=== PATIENT | female | born 1965 | race Caucasian/White ===

== ENCOUNTER 2017-01-22 23:26 | Emergency (ER) | payer MEDICAID ==
[2017-01-22 23:38] LABS: URINE APPEARANCE CLEAR; URINE BILIRUBIN NEGATIVE (NEGATIVE); URINE BLOOD LARGE (NEGATIVE); URINE COLOR YELLOW; URINE KETONE NEGATIVE (NEGATIVE); URINE LEUKOCYTE ESTERASE TRACE (NEGATIVE); URINE NITRITE NEGATIVE (NEGATIVE); URINE UROBILINOGEN 0.2 E.U./dL (0.20 - 1.00)
[2017-01-22 23:39] LABS: URINE GLUCOSE (UA) >=1000 mg/dL (NEGATIVE)
[2017-01-22 23:43] LABS: URINE BACTERIA NONE SEEN; URINE EPITHELIAL CELLS 0 - 2 (FEW); URINE RBC 36 - 50 (NONE SEEN); URINE WBC 0 - 2 (0-2/hpf)
--- NOTE | 2017-01-22 23:48 | Emergency Department Record ---
History of Present Illness - General Chief complaint: Flank Pain Stated complaint: FLANK PAIN Time Seen by Provider: 01/22/17 23:27 Source: Patient Mode of Arrival: Wheelchair Limitations: No limitations - History of Present Illness Initial comments: 51 yo female presents to ED with a CC of hematuria symptoms that began approximately 6 hours ago. Patient denies flank or back pain symptoms, but reports pain with urination. Patient denies fevers, chills, nausea, or vomiting symptoms. Patient does report that she takes Plavix for a previous CVA. MD Complaint: Dysuria, Other (hematuria) Onset/Timin -: Hour(s) Radiation: Non-radiating Severity: Mild Quality: Other Consistency: Intermittent Improves with: None Worsens with: Urination Patient : No Associated Symptoms: Denies other symptoms - Related Data Home Medications Medication Instructions Recorded Confirmed Last Taken Aspirin 325 mg PO DAILY 12/24/13 01/22/17 04/03/16 Atorvastatin Calcium 40 mg PO DAILY 12/24/13 01/22/17 04/03/16 Clopidogrel 75 mg PO DAILY 12/24/13 01/22/17 04/03/16 Fenofibrate 134 mg PO DAILY 12/24/13 01/22/17 04/03/16 Gabapentin 600 mg PO BID 12/24/13 01/22/17 04/03/16 Insulin Glargine,Hum.rec.anlog 50 unit SQ BID 12/24/13 01/22/17 Unknown [Lantus] Metoprolol Succinate [Toprol Xl] 25 mg PO DAILY 12/24/13 01/22/17 04/03/16 Novolog See Protocol SQ BID 12/24/13 01/22/17 Unknown Phenytoin Sodium Extended 200 mg PO BID 12/24/13 01/22/17 04/03/16 [Dilantin] Cholecalciferol (Vitamin D3) 2,000 unit PO BID 01/22/17 01/22/17 Unknown [Vitamin D3] Nitroglycerin [Nitrostat] 0.4 mg SL Q5MIN PRN 01/22/17 01/22/17 Unknown Venlafaxine HCl [Effexor Xr] 75 mg PO DAILY 01/22/17 01/22/17 Unknown Allergies Allergy/AdvReac Type Severity Reaction Status Date / Time Iodinated Contrast Media - Allergy HIVES Verified 01/22/17 23:43 Oral and Penicillins Allergy ANAPHYLAXIS Verified 04/03/16 17:11 Travel Screening - Travel/Exposure Within Last 30 Days Have you traveled within the last 30 days?: No - Travel/Exposure Within Last Year Have you traveled outside the [place] in the last year?: No - Additonal Travel Details Have you been exposed to anyone with a communicable illness?: No - Travel Symptoms Symptom Screening: None Review of Systems Constitutional: Denies: Chills, Fever, Malaise, Night sweats Eyes: Denies: Eye discharge, Eye pain ENT: Denies: Congestion, Ear pain, Epistaxis Respiratory: Denies: Cough, Dyspnea Cardiovascular: Denies: Chest pain, Dyspnea on exertion Endocrine: Denies: Fatigue, Heat or cold intolerance Gastrointestinal: Denies: Abdominal pain, Nausea, Vomiting Genitourinary: Reports: Dysuria, Hematuria. Denies: Frequency, Incontinence Musculoskeletal: Denies: Arthralgia, Back pain, Gout Skin: Denies: Bruising, Change in color Neurological: Denies: Abnormal gait, Confusion, Headache Psychiatric: Denies: Anxiety Hematological/Lymphatic: Denies: Anemia, Blood Clots Past Medical History - SOCIAL HISTORY Smoking Status: Former smoker Alcohol Use: None Drug Use: None - RESPIRATORY Hx Respiratory Disorders: No - CARDIOVASCULAR Hx Cardio Disorders: Yes Hx Cardiac Cath: Yes Hx Chest Pain: Yes Hx Heart Attack: Yes - NEURO Hx Neuro Disorders: Yes Hx CVA: Yes (09/15/2014) Hx Neuropathy: Yes Hx Seizures: Yes (epileptic) Comment:: rt sided weakness, whelchair dependent. some speech/memory loss - GI Hx GI Disorders: No - Hx Genitourinary Disorders: No - ENDOCRINE Hx Endocrine Disorders: Yes Hx Diabetes: Yes - MUSCULOSKELETAL Hx Musculoskeletal Disorders: No - PSYCH Hx Psych Problems: No - HEMATOLOGY/ONCOLOGY Hx Hematology/Oncology Disorders: No Family Medical History Any Significant Family History?: Yes Hx Cancer: Mother Hx Heart Disease: Father Hx Stroke: Mother Physical Exam - General General Appearance: Alert, Oriented x3, Cooperative, Mild distress Limitations: No limitations - Head Head exam: Atraumatic, Normocephalic, Normal inspection Head exam detail: negative: Abrasion, Contusion, Lyons's sign, General tenderness, Hematoma, Laceration - Eye Eye exam: Normal appearance. negative: Conjunctival injection, Periorbital swelling, Periorbital tenderness, Scleral icterus - ENT Ear exam: negative: Auricular hematoma, Auricular trauma Nasal Exam: negative: Active bleeding, Discharge, Dried blood, Sinus tenderness Mouth exam: negative: Drooling, Laceration, Tongue elevation - Neck Neck exam: Normal inspection. negative: Meningismus, Tenderness - Respiratory Respiratory exam: Normal lung sounds bilaterally. negative: Respiratory distress, Rhonchi, Stridor, Wheezes - Cardiovascular Cardiovascular Exam: Regular rate, Normal rhythm, Normal heart sounds - GI/Abdominal GI/Abdominal exam: Soft. negative: Rebound, Rigid, Tenderness - Rectal Rectal exam: Deferred - exam: Deferred - Extremities Extremities exam: Other (contractures to the RUE). negative: Calf tenderness, Pedal edema, Tenderness - Back Back exam: Denies: CVA tenderness (R), CVA tenderness (L) - Neurological Neurological exam: Alert, Normal gait, Oriented X3 - Psychiatric Psychiatric exam: Normal affect, Normal mood - Skin Skin exam: Normal color. negative: Abrasion Type of lesion: negative: abrasion Course Vital Signs 01/22/17 23:34 Temperature 98.8 F Pulse Rate 70 Respiratory 20 Rate Blood Pressure 124/73 Pulse Ox 96 - Reevaluation(s) Reevaluation #1: 01/23/17 00:10 Labs reviewed, Glucose 416, BUN 26, Creatinine 1.1. UA reveals large blood without evidence for infection. Labs are otherwise grossly unremarkable for an acute process. Reevaluation #2: 01/23/17 00:43 CT Abdomen and Pelvis: Diverticulosis, nothing acute. Patient and her SO were updated on all results, no evidence for UTI or infection are present. Patient appears stable for discharge with instructions for follow-up in 1-3 days as directed. Medical Decision Making - Lab Data Result diagrams: 01/22/17 23:46 01/22/17 23:46 Lab Results 01/22/17 Range/Units 23:39 Urine Color Yellow Urine Appearance Clear Urine pH 5.5 (5.0-8.0) Ur Specific [place] 1.010 (1.002-1.030) Urine Protein 30 mg/dl H (NEGATIVE) Urine Glucose (UA) >=1000 mg/dl H (NEGATIVE) Urine Ketones Negative (NEGATIVE) Urine Blood Large H (NEGATIVE) Urine Nitrite Negative (NEGATIVE) Urine Bilirubin Negative (NEGATIVE) Urine Urobilinogen 0.2 (0.20 - 1.00) E.U./dL Ur Leukocyte Esterase Trace H (NEGATIVE) Urine RBC 36 - 50 (NONE SEEN) Urine WBC 0 - 2 (0-2/hpf) Ur Epithelial Cells 0 - 2 (FEW) Urine Bacteria None seen Disposition Disposition: Discharge Clinical Impression: Hematuria Disposition: Home, Self-Care Condition: (2) Stable Instructions: Hematuria (ED) Additional Instructions: Return to ED if your symptoms worsen or if you have any concerns. Follow-up with your family doctor in 1-3 days as directed. Forms: Patient Portal Access Time of Disposition: 00:45
[2017-01-23 00:04] LABS: ALB/GLOB RATIO 1.2 (1.1-1.8); ALBUMIN 4.1 gm/dL (3.5-5.0); ANION GAP 6.7 (7-16); BILIRUBIN,TOTAL 0.36 mg/dL (0.2-1.3); CARBON DIOXIDE 27.3 mmol/L (22-30); CREATININE 1.1 mg/dL (0.52-1.04); TOTAL PROTEIN 7.5 gm/dL (6.3-8.2)
[2017-01-23 00:05] LABS: HEMATOCRIT 35.6 % (35.0-47.0); HEMOGLOBIN 12.2 gm/dl (11.6-16.0); MEAN CORPUSCULAR HEMOGLOBIN 29.8 pg (27-33); MEAN CORPUSCULAR HGB CONC 34.3 g/dl (32-36); MEAN PLATELET VOLUME 9.2 fl (7.4-10.4); PLATELET COUNT 285 K/uL (130-400); RED BLOOD COUNT 4.09 M/uL (3.80-5.40); RED CELL DISTRIBUTION WIDTH 13.4 % (11.5-14.5); WHITE BLOOD COUNT W/O DIFF 8.5 K/uL (4.2-12.2)
== END 2017-01-23 00:57 | disposition home or self-care (01) ==
LOC: ER 23:26
DX: R31.0 Gross hematuria (principal); R30.0 Dysuria; I69.351 Hemiplegia and hemiparesis following cerebral infarction affecting right dominant side; I69.311 Memory deficit following cerebral infarction; I69.328 Other speech and language deficits following cerebral infarction; I25.2 Old myocardial infarction; E11.9 Type 2 diabetes mellitus without complications; Z79.4 Long term (current) use of insulin; R10.9 Unspecified abdominal pain; Z87.891 Personal history of nicotine dependence
CPT/HCPCS: 74176; 80053; 81001; 85025; 85027; 99283; 99284

== ENCOUNTER 2017-03-15 19:47 | Emergency (ER) | payer MEDICAID ==
--- NOTE | 2017-03-15 20:10 | Emergency Department Record ---
History of Present Illness - General Chief Complaint: Headache Migraine Stated Complaint: AWOKE WITH A SEVERE HEADACHE Time Seen by Provider: 03/15/17 19:54 Source: Patient Mode of Arrival: Wheelchair Limitations: Other (previous stroke affects speech) - History of Present Illness Initial Comments: 51 yo female presents to ED for evaluation of a moderate-severe headache that began upon waking 3.5 hours prior to arrival. Patient reports previous symptoms 3.5 years ago that resulted in right sided hemiparesis. patient does report her headache sympotms have improved since arriving to the ED, rated at 5/ 10 currently, and the patient denies the need for analgesia at this time. Patient denies new weakness symptoms but does report a change in sensation to the right face. SO a the bedside denies new facial deficit on examination. Patient also reports a history of IDDM. MD Complaint: Headache Onset/Timin -: Hour(s) Onset Description: Sudden, At rest, Awoke with symptoms Location: Other Severity: Mild Severity scale (1-10): 5 Consistency: Constant Improves With: Nothing Worsens With: None Associated Symptoms: Other Treatments Prior to Arrival: None - Related Data Home Medications Medication Instructions Recorded Confirmed Last Taken Aspirin 325 mg PO DAILY 12/24/13 03/15/17 04/03/16 Atorvastatin Calcium 40 mg PO DAILY 12/24/13 03/15/17 04/03/16 Clopidogrel 75 mg PO DAILY 12/24/13 03/15/17 04/03/16 Fenofibrate 134 mg PO DAILY 12/24/13 03/15/17 04/03/16 Gabapentin 600 mg PO BID 12/24/13 03/15/17 04/03/16 Insulin Glargine,Hum.rec.anlog 50 unit SQ BID 12/24/13 03/15/17 Unknown [Lantus] Metoprolol Succinate [Toprol Xl] 25 mg PO DAILY 12/24/13 03/15/17 04/03/16 Novolog See Protocol SQ BID 12/24/13 03/15/17 Unknown Phenytoin Sodium Extended 200 mg PO BID 12/24/13 03/15/17 04/03/16 [Dilantin] Cholecalciferol (Vitamin D3) 2,000 unit PO BID 01/22/17 03/15/17 Unknown [Vitamin D3] Nitroglycerin [Nitrostat] 0.4 mg SL Q5MIN PRN 01/22/17 03/15/17 Unknown Venlafaxine HCl [Effexor Xr] 75 mg PO DAILY 01/22/17 03/15/17 Unknown Allergies Allergy/AdvReac Type Severity Reaction Status Date / Time Iodinated Contrast- Oral and Allergy HIVES Verified 01/22/17 23:43 IV Dye [Iodinated Contrast Media - Oral and] Penicillins Allergy ANAPHYLAXIS Verified 04/03/16 17:11 Travel Screening - Travel/Exposure Within Last 30 Days Have you traveled within the last 30 days?: No - Travel/Exposure Within Last Year Have you traveled outside the [place] in the last year?: No - Additonal Travel Details Have you been exposed to anyone with a communicable illness?: No - Travel Symptoms Symptom Screening: None Review of Systems Constitutional: Denies: Chills, Fever, Malaise, Night sweats Eyes: Denies: Eye discharge, Eye pain ENT: Denies: Congestion, Ear pain, Epistaxis Respiratory: Denies: Cough, Dyspnea Cardiovascular: Denies: Chest pain, Dyspnea on exertion Endocrine: Denies: Fatigue, Heat or cold intolerance Gastrointestinal: Denies: Abdominal pain, Nausea, Vomiting Genitourinary: Denies: Incontinence, Retention Musculoskeletal: Denies: Arthralgia, Back pain, Gout, Joint swelling Skin: Denies: Bruising, Change in color Neurological: Reports: Headache, Numbness. Denies: Abnormal gait, Confusion, Seizure Psychiatric: Denies: Anxiety Hematological/Lymphatic: Denies: Anemia, Blood Clots Past Medical History - SOCIAL HISTORY Smoking Status: Former smoker Alcohol Use: None Drug Use: None - RESPIRATORY Hx Respiratory Disorders: No - CARDIOVASCULAR Hx Cardio Disorders: Yes Hx Cardiac Cath: Yes Hx Chest Pain: Yes Hx Heart Attack: Yes - NEURO Hx Neuro Disorders: Yes Hx CVA: Yes (09/15/2014) Hx Neuropathy: Yes Hx Seizures: Yes (epileptic) Comment:: rt sided weakness, whelchair dependent. some speech/memory loss - GI Hx GI Disorders: No - Hx Genitourinary Disorders: No - ENDOCRINE Hx Endocrine Disorders: Yes Hx Diabetes: Yes - MUSCULOSKELETAL Hx Musculoskeletal Disorders: No - PSYCH Hx Psych Problems: No - HEMATOLOGY/ONCOLOGY Hx Hematology/Oncology Disorders: No Family Medical History Any Significant Family History?: No Hx Cancer: Mother Hx Heart Disease: Father Hx Stroke: Mother Physical Exam - General General Appearance: Alert, Oriented x3, Cooperative, Mild distress Limitations: No limitations - Head Head exam: Atraumatic, Normocephalic, Normal inspection Head exam detail: negative: Abrasion, Contusion, Lyons's sign, General tenderness, Hematoma, Laceration - Eye Eye exam: Normal appearance. negative: Conjunctival injection, Periorbital swelling, Periorbital tenderness, Scleral icterus - ENT Ear exam: negative: Auricular hematoma, Auricular trauma Nasal Exam: negative: Active bleeding, Discharge, Dried blood, Foreign body Mouth exam: negative: Drooling, Laceration, Muffled voice, Tongue elevation - Neck Neck exam: Normal inspection. negative: Meningismus, Tenderness - Respiratory Respiratory exam: Normal lung sounds bilaterally. negative: Rales, Respiratory distress, Rhonchi, Stridor - Cardiovascular Cardiovascular Exam: Regular rate, Normal rhythm, Normal heart sounds - GI/Abdominal GI/Abdominal exam: Soft. negative: Rebound, Rigid, Tenderness - Rectal Rectal exam: Deferred - exam: Deferred - Extremities Extremities exam: Other (contractures of the RUE/RLE on examination). negative : Calf tenderness, Pedal edema, Tenderness - Back Back exam: Denies: CVA tenderness (R), CVA tenderness (L) - Neurological Neurological exam: Alert, Oriented X3, Other (Mild facial deficit right, unchanged from her baseline per the patient's SO, paralysis of the RUE/RLE) - Psychiatric Psychiatric exam: Normal affect, Normal mood - Skin Skin exam: Normal color. negative: Abrasion Type of lesion: negative: abrasion Course Vital Signs 03/15/17 03/15/17 19:52 19:54 Temperature 97.9 F 97.9 F Pulse Rate 73 Pulse Rate [ 73 Pulse Ox Probe] Respiratory 20 24 Rate Blood Pressure 132/83 Blood Pressure 132/83 [Left Arm] Pulse Ox 97 98 - Reevaluation(s) Reevaluation #1: 03/15/17 20:10 Patient was seen and examined, due to [place] subjective sensory deficit to the right face, patient is not currently a tPA candidate. Will obtain laboratory studies and CT imaging for further evaluation. Labs reviewed, BUN 26/Creatinine 1.2. Glucose is 217. Labs are otherwise grossly unremarkable for an acute process. CT interpretation is pending currently. 03/15/17 20:34 Reevaluation #2: 07/22/17 20:49 CT Brain: Chronic ischemic changes, nothing acute. Reevaluation #3: 03/15/17 20:50 Case was discussed with Dr. Carreon, will transfer to [facility] for further neurologic evaluation. ASA ordered following CT imaging result. Patient and her SO were updated on all results and agree with the plan of care for transfer to [facility] for further evaluation. Medical Decision Making - Lab Data Result diagrams: 03/15/17 20:09 03/15/17 20:09 Disposition Disposition: Transfer Clinical Impression: TIA (transient ischemic attack) Qualifiers: Transient cerebral ischemia type: unspecified Qualified Code(s): G45.9 - Transient cerebral ischemic attack, unspecified Disposition: Acute Care Hospital Transfer Transfer To: [facility] Reason For Transfer: Neurology consultation/Stroke consultation Accepting Physician: Lauri Time Discussed w/Accepting Physician: 20:52 Condition: (2) Stable Forms: Patient Portal Access Time of Disposition: 20:52 Quality - Quality Measures Quality Measures: N/A - Blood Pressure Screening Blood Pressure Classification: Pre-Hypertensive BP Reading Systolic Measurement: 132 Diastolic Measurement: 83 Screening for High Blood Pressure: < Pre-Hypertensive BP, F/U Documented > [ G8950] Pre-Hypertensive Follow-up Interventions: Referral to alternative/primary care provider.
[2017-03-15 20:14] LABS: BASO % 0.9 % (0-6); EOS % 3.3 % (0-6); GRAN % 56.4 % (47-80); HEMATOCRIT 36.5 % (35.0-47.0); HEMOGLOBIN 12.2 gm/dl (11.6-16.0); LYMPH % 31.6 % (16-45); MEAN CELL VOLUME 87.7 fl (81-97); MEAN CORPUSCULAR HEMOGLOBIN 29.3 pg (27-33); MEAN CORPUSCULAR HGB CONC 33.4 g/dl (32-36); MEAN PLATELET VOLUME 9.3 fl (7.4-10.4); MONO % 7.8 % (0-9); PLATELET COUNT 283 K/uL (130-400); RED BLOOD COUNT 4.16 M/uL (3.80-5.40); RED CELL DISTRIBUTION WIDTH 14.3 % (11.5-14.5); WHITE BLOOD COUNT W/O DIFF 6.6 K/uL (4.2-12.2)
[2017-03-15 20:26] LABS: ALB/GLOB RATIO 1.2 (1.1-1.8); ALBUMIN 4.2 gm/dL (3.5-5.0); ANION GAP 13.2 (7-16); BILIRUBIN,TOTAL 0.66 mg/dL (0.2-1.3); CARBON DIOXIDE 27.8 mmol/L (22-30); CREATININE 1.2 mg/dL (0.52-1.04); INR 0.99; PROTHROMBIN TIME (PATIENT) 10.7 SECONDS (9.5-12.1); TOTAL PROTEIN 7.7 gm/dL (6.3-8.2)
[2017-03-15] MEDS ORDERED: ASPIRIN 81 MG CHEWABLE TABLET PO ONE (20:51)
[2017-03-15] MEDS ORDERED: ONDANSETRON HCL IV 4 MG/2 ML VIAL IVP ONE (23:21)
[2017-03-15] MEDS ORDERED: MORPHINE SULFATE 5 MG/ML PFS IVP ONE (23:21)
--- NOTE | 2017-03-18 08:22 | CT SCAN REPORT ---
EXAM: CT SCAN OF THE HEAD HISTORY: PATIENT HAS SPEECH AND MEMORY LOSS. TECHNIQUE: Serial axial CT scan of the head was performed at 2.5 mm intervals from the base of the skull to the apex without the use of intravenous contrast. Comparison: CT scan of the head dated 01/27/08 is provided. FINDINGS: A large area of encephalomalacia is noted within the left posterior frontal and left temporal lobes. This finding is due with respect to the prior examination and is consistent with an old infarct. There is no mass or mass effect. An area of decreased attenuation within the left parietal cortex suggests old infarct in this area as well. The remainder of the garcia and white differentiation appear within normal limits. There is no CT evidence of intra or extraaxial fluid collection to suggest bleeding. Bone windows demonstrate no CT evidence of a fracture or dislocation of the skull. The paranasal sinuses are unremarkable. IMPRESSION: CHRONIC INFARCT INVOLVING THE LEFT POSTERIOR FRONTAL LOBE AND LEFT PARIETAL LOBE. NO CT EVIDENCE OF AN ACUTE INTRACRANIAL PROCESS. JOB NUMBER: [id number] MTDD
== END 2017-03-15 23:33 | disposition short-term general hospital (02) ==
LOC: ER 19:47
DX: G45.9 Transient cerebral ischemic attack, unspecified (principal); R51 Headache; I69.811 Memory deficit following other cerebrovascular disease; I69.828 Other speech and language deficits following other cerebrovascular disease; I69.851 Hemiplegia and hemiparesis following other cerebrovascular disease affecting right dominant side; E11.9 Type 2 diabetes mellitus without complications; I25.2 Old myocardial infarction; Z87.891 Personal history of nicotine dependence; Z79.4 Long term (current) use of insulin; G40.909 Epilepsy, unspecified, not intractable, without status epilepticus
CPT/HCPCS: 99285 ×2; 96374; 96375; 85025; 85610; 80053; 70450; 93005; 93010; J2405; J2270

== ENCOUNTER 2017-04-10 19:51 | Emergency (ER) | payer MEDICAID ==
--- NOTE | 2017-04-10 21:23 | Emergency Department Record ---
History of Present Illness - General Stated complaint: RT PINKY TOE INFECTED Time Seen by Provider: 04/10/17 21:22 Source: Patient Mode of Arrival: Ambulatory Limitations: No limitations - History of Present Illness Initial comments: 51 yo female presents with a right 5th toe concern. The noted blood, nail injury, swelling today. She and he are unaware of an injury. She wheelchair bound due to a prior stroke. She is a diabetic as well. No pus seen or red streaking. MD Complaint: Extremity pain, Joint pain -: Days(s) (1) Location: Right, Foot Radiation: Distal Quality: Aching Consistency: Constant Improves with: Nothing Worsens with: Nothing Associated Symptoms: Denies other symptoms - Related Data Home Medications Medication Instructions Recorded Confirmed Last Taken Aspirin 325 mg PO DAILY 12/24/13 04/10/17 04/03/16 Insulin Glargine,Hum.rec.anlog 50 unit SQ BID 12/24/13 04/10/17 Unknown [Lantus] Metoprolol Succinate [Toprol Xl] 25 mg PO QPM 12/24/13 04/10/17 04/03/16 Novolog See Protocol SQ BID 12/24/13 04/10/17 Unknown Phenytoin Sodium Extended 200 mg PO BID 12/24/13 04/10/17 04/03/16 [Dilantin] Cholecalciferol (Vitamin D3) 2,000 unit PO BID 01/22/17 04/10/17 Unknown [Vitamin D3] Nitroglycerin [Nitrostat] 0.4 mg SL Q5MIN PRN 01/22/17 04/10/17 Unknown Venlafaxine HCl [Effexor Xr] 75 mg PO DAILY 01/22/17 04/10/17 Unknown Atorvastatin Calcium 40 mg PO QHS 04/10/17 04/10/17 Unknown Clopidogrel Bisulfate [Clopidogrel] 75 mg PO DAILY 04/10/17 04/10/17 Unknown Fenofibrate,Micronized 134 mg PO DAILY 04/10/17 04/10/17 Unknown [Fenofibrate] Gabapentin [Neurontin] 600 mg PO BID 04/10/17 04/10/17 Unknown Previous Rx's Medication Instructions Recorded Clindamycin HCl 300 mg PO QID #28 capsule 04/10/17 Allergies Allergy/AdvReac Type Severity Reaction Status Date / Time Iodinated Contrast- Oral and Allergy HIVES Verified 05/31/17 23:43 IV Dye [Iodinated Contrast Media - Oral and] Penicillins Allergy ANAPHYLAXIS Verified 04/03/16 17:11 Review of Systems Constitutional: Denies: Chills, Fever, Malaise Eyes: Denies: Eye discharge, Eye pain ENT: Denies: Congestion, Throat pain Respiratory: Denies: Dyspnea Cardiovascular: Denies: Chest pain, Syncope Endocrine: Denies: Fatigue Gastrointestinal: Denies: Abdominal pain, Diarrhea, Nausea, Vomiting Genitourinary: Denies: Dysuria, Urgency Musculoskeletal: Reports: As per HPI, Arthralgia Skin: Reports: As per HPI, Change in color Neurological: Denies: Headache Psychiatric: Denies: Anxiety Hematological/Lymphatic: Denies: Easy bleeding, Easy bruising, Swollen glands Past Medical History - SOCIAL HISTORY Smoking Status: Former smoker Drug Use: None - RESPIRATORY Hx Respiratory Disorders: No - CARDIOVASCULAR Hx Cardio Disorders: Yes Hx Cardiac Cath: Yes Hx Chest Pain: Yes Hx Heart Attack: Yes - NEURO Hx Neuro Disorders: Yes Hx CVA: Yes (09/15/2014) Hx Neuropathy: Yes Hx Seizures: Yes (epileptic) Comment:: rt sided weakness, whelchair dependent. some speech/memory loss - GI Hx GI Disorders: No - Hx Genitourinary Disorders: No - ENDOCRINE Hx Endocrine Disorders: Yes Hx Diabetes: Yes - MUSCULOSKELETAL Hx Musculoskeletal Disorders: No - PSYCH Hx Psych Problems: No - HEMATOLOGY/ONCOLOGY Hx Hematology/Oncology Disorders: No Family Medical History Hx Cancer: Mother Hx Heart Disease: Father Hx Stroke: Mother Physical Exam - General General Appearance: Alert Limitations: No limitations - Head Head exam: Atraumatic, Normal inspection - Eye Eye exam: Normal appearance - ENT ENT exam: Normal exam Ear exam: Normal external inspection Nasal Exam: Normal inspection Mouth exam: Normal external inspection - Neck Neck exam: Normal inspection - Respiratory Respiratory exam: Normal lung sounds bilaterally. negative: Respiratory distress - Cardiovascular Cardiovascular Exam: Regular rate, Normal rhythm, Normal heart sounds Peripheral Pulses: 2+: Dorsalis Pedis (R) - Rectal Rectal exam: Deferred - exam: Deferred - Extremities Extremities exam: Normal capillary refill, Pedal edema. negative: Normal inspection Image of Feet: 1 - mild swellling right 5th toe, small amount of dry blood, no pus, nail mildly loose, no deformity of the toe - Neurological Neurological exam: Alert, Oriented X3. negative: Altered - Psychiatric Psychiatric exam: Normal affect, Normal mood - Skin Skin exam: Erythema Course - Reevaluation(s) Reevaluation #1: 04/10/17 21:37 XR of the toe ordered. Reevaluation #2: XR demonstrated a non displaced fracture of the proximal phalange bone The nail was re-examined. It is essential near completely avulsed I discussed the options. She and her want it removed and not replaced I discussed likely [facility] irregular growth is likely. 04/10/17 22:47 Betadine prep Lidocaine without epi 3.5ml The nail was gently removed with scissors from the small remaining attachment The area was thoroughly cleaned Dressing applied Rx for Clindamycin provided given she is a diabetic Given her stroke, chronic sensory changes, chronic fungal nail infections, diabetes I recommended the patient discuss a podiatry referral with her PCP 04/11/17 00:12 Disposition Disposition: Discharge Clinical Impression: Toe fracture, right Qualifiers: Encounter type: initial encounter Toe: lesser toe Fracture type: closed Phalanx : proximal Fracture alignment: nondisplaced Qualified Code(s): S92.514A - Nondisplaced fracture of proximal phalanx of right lesser toe(s), initial encounter for closed fracture Nail avulsion of toe Qualifiers: Encounter type: initial encounter Qualified Code(s): S91.209A - Unspecified open wound of unspecified toe(s) with damage to nail, initial encounter Disposition: Home, Self-Care Condition: (1) Good Instructions: Toe Fracture (ED) Additional Instructions: Change the dressing daily Call your doctor for a podiatry referral Return if bleeding, red, pus, warm or signs of infection Prescriptions: Clindamycin HCl 300 mg PO QID #28 capsule Forms: Patient Portal Access Time of Disposition: 23:45 Quality - Quality Measures Quality Measures: N/A - Blood Pressure Screening Does Patient Have Any of the Following: No Blood Pressure Classification: Pre-Hypertensive BP Reading Systolic Measurement: 131 Diastolic Measurement: 79 Screening for High Blood Pressure: < Pre-Hypertensive BP, F/U Documented > [ G8950] Pre-Hypertensive Follow-up Interventions: Referral to alternative/primary care provider.
[2017-04-10] MEDS ORDERED: CLINDAMYCIN 150 MG CAP PO ONE (21:37)
[2017-04-11] MEDS ORDERED: TOPICAL LIDOCAINE W/ EPI 5 ML TOP ONE (00:05)
[2017-04-11] MEDS ORDERED: GELATIN SPONGE,ABSORBABLE 1 EACH SPONGE TP ONE (00:12)
--- NOTE | 2017-04-12 23:02 | RADIOLOGY REPORT ---
EXAM: TOES, RIGHT HISTORY: INJURY. TECHNIQUE: Three views of the right fifth toe. COMPARISON: None. ENCOUNTER: Initial. FINDINGS: Nondisplaced fracture of the distal aspect of the proximal phalanx of the fifth toe with associated soft tissue swelling. No dislocation. Osteopenia. IMPRESSION: NONDISPLACED FRACTURE OF THE DISTAL ASPECT OF THE PROXIMAL PHALANX OF THE FIFTH TOE. JOB NUMBER: [id number] MTDD
== END 2017-04-11 00:02 | disposition home or self-care (01) ==
LOC: ER 19:51
DX: S92.514A Nondisplaced fracture of proximal phalanx of right lesser toe(s), initial encounter for closed fracture (principal); S91.209A Unspecified open wound of unspecified toe(s) with damage to nail, initial encounter; E11.9 Type 2 diabetes mellitus without complications; Z79.4 Long term (current) use of insulin; X58.XXXA Exposure to other specified factors, initial encounter
CPT/HCPCS: 73660; 99283; 99284

== ENCOUNTER 2017-09-30 00:12 | Observation (INO) | payer MEDICAID ==
[2017-09-30] MEDS ORDERED: MORPHINE SULFATE 5 MG/ML PFS IVP ONE (00:24)
[2017-09-30] MEDS ORDERED: METHYLPREDNISOLONE PF 125MG/VIAL IVP ONE (00:24)
[2017-09-30] MEDS ORDERED: ONDANSETRON HCL IV 4 MG/2 ML VIAL IVP ONE (00:24)
[2017-09-30] MEDS ORDERED: DIPHENHYDRAMINE HCL IV 50 MG/ML VIAL IVP ONE (00:24)
--- NOTE | 2017-09-30 00:30 | Emergency Department Record ---
History of Present Illness - General Chief complaint: Pain Stated complaint: RIGHT SIDE PAIN Time Seen by Provider: 09/30/17 00:14 Source: Patient Mode of Arrival: Wheelchair Limitations: No limitations - History of Present Illness Initial comments: 52 yo female presents to ED with a CC of right sided rib/abdominal pain symptoms for the past 1 week. Patient reports recent cough symptoms, denies fevers, chills, flank pain, or urinary symptoms. Patient denies nausea and vomiting symptoms. Patient does report history of cardiac and lower extremity stents, h/o CVA. MD Complaint: Abdominal Pain Onset/Timin -: Week(s) Location: Right History of Same: No Radiation: None Quality: Sharp, Stabbing Consistency: Constant Improves with: Nothing Worsens with: Palpation Associated Symptoms: Denies other symptoms - Related Data Home Medications Medication Instructions Recorded Confirmed Last Taken Levofloxacin [Levaquin] 750 mg PO DAILY 09/30/17 09/30/17 Unknown Allergies Allergy/AdvReac Type Severity Reaction Status Date / Time Iodinated Contrast- Oral and Allergy HIVES Verified 09/30/17 00:15 IV Dye [Iodinated Contrast Media - Oral and] Penicillins Allergy ANAPHYLAXIS Verified 09/30/17 00:15 Review of Systems Constitutional: Denies: Chills, Fever, Malaise, Night sweats Eyes: Denies: Eye discharge, Eye pain ENT: Denies: Congestion, Ear pain, Epistaxis Respiratory: Denies: Cough, Dyspnea Cardiovascular: Reports: Chest pain. Denies: Dyspnea on exertion Endocrine: Denies: Fatigue, Heat or cold intolerance Gastrointestinal: Reports: Abdominal pain. Denies: Nausea, Vomiting Genitourinary: Denies: Incontinence, Retention Musculoskeletal: Denies: Arthralgia, Back pain, Gout, Joint swelling Skin: Denies: Bruising, Change in color Neurological: Denies: Abnormal gait, Confusion, Headache, Seizure Psychiatric: Denies: Anxiety Hematological/Lymphatic: Denies: Anemia, Blood Clots Past Medical History - SOCIAL HISTORY Smoking Status: Former smoker Drug Use: None - RESPIRATORY Hx Respiratory Disorders: No - CARDIOVASCULAR Hx Cardio Disorders: Yes Hx Cardiac Cath: Yes Hx Chest Pain: Yes Hx Heart Attack: Yes - NEURO Hx Neuro Disorders: Yes Hx CVA: Yes (09/15/2014) Hx Neuropathy: Yes Hx Seizures: Yes (epileptic) Comment:: rt sided weakness, whelchair dependent. some speech/memory loss - GI Hx GI Disorders: No - Hx Genitourinary Disorders: No - ENDOCRINE Hx Endocrine Disorders: Yes Hx Diabetes: Yes - MUSCULOSKELETAL Hx Musculoskeletal Disorders: No - PSYCH Hx Psych Problems: No - HEMATOLOGY/ONCOLOGY Hx Hematology/Oncology Disorders: No Family Medical History Hx Cancer: Mother Hx Heart Disease: Father Hx Stroke: Mother Physical Exam - General General Appearance: Alert, Oriented x3, Cooperative, Moderate distress Limitations: No limitations - Head Head exam: Atraumatic, Normocephalic, Normal inspection Head exam detail: negative: Abrasion, Contusion, Lyons's sign, General tenderness, Hematoma, Laceration - Eye Eye exam: Normal appearance. negative: Conjunctival injection, Periorbital swelling, Periorbital tenderness, Scleral icterus - ENT Ear exam: negative: Auricular hematoma, Auricular trauma Nasal Exam: negative: Active bleeding, Discharge, Dried blood, Foreign body Mouth exam: negative: Drooling, Laceration, Muffled voice, Tongue elevation - Neck Neck exam: Normal inspection. negative: Meningismus, Tenderness - Respiratory Respiratory exam: Normal lung sounds bilaterally, Chest wall tenderness (right lateral chest wall). negative: Rales, Respiratory distress, Rhonchi, Stridor - Cardiovascular Cardiovascular Exam: Regular rate, Normal rhythm, Normal heart sounds - GI/Abdominal GI/Abdominal exam: Soft, Tenderness, Other (TTP RUQ, epigastric region as well right lateral chest wall). negative: Rebound, Rigid - Rectal Rectal exam: Deferred - exam: Deferred - Extremities Extremities exam: Normal inspection. negative: Pedal edema, Tenderness - Back Back exam: Denies: CVA tenderness (R), CVA tenderness (L) - Neurological Neurological exam: Alert, Normal gait, Oriented X3 - Psychiatric Psychiatric exam: Normal affect, Normal mood - Skin Skin exam: Normal color. negative: Abrasion Type of lesion: negative: abrasion Course - Reevaluation(s) Reevaluation #1: 09/30/17 01:10 Labs reviewed, D-Dimer 0.43, Potassium 4.7. BUN/Creatinine 29/1.3, Glucose 287. Patient is resting more comfortably following Morphine-CT Chest/Abdomen ordered for further evaluation. Reevaluation #2: 09/30/17 02:20 CT Chest: No acute process CT Abdomen: No acute process Reevaluation #3: 09/30/17 02:49 Patient and her SO were updated on all results, will place in observation for pain control and PT/OT evaluation before being released home. Patient and her SO agree with the plan as discussed. Reevaluation #4: 09/30/17 06:53 Case was discussed with Amelia Clarke, will accept admission at this time. Medical Decision Making - Lab Data Result diagrams: 09/30/17 00:43 09/30/17 00:43 Disposition Disposition: Admit Clinical Impression: Chest wall pain Disposition: Still a Patient at [facility] Decision to Admit: Admit from ER Decision to Admit Date: 09/30/17 Decision to Admit Time: 02:51 Condition: (2) Stable Time of Disposition: 02:51 Quality - Quality Measures Quality Measures: N/A - Blood Pressure Screening Does Patient Have Any of the Following: Active Dx of HTN Blood Pressure Classification: Hypertensive Reading Systolic Measurement: 161 Diastolic Measurement: 71 Screening for High Blood Pressure: Patient Exclusion, Hx of HTN [G9744]
[2017-09-30 00:49] LABS: BASO % 0.5 % (0-6); EOS % 3.7 % (0-6); GRAN % 52.9 % (47-80); HEMATOCRIT 33.9 % (35.0-47.0); HEMOGLOBIN 11.7 gm/dl (11.6-16.0); LYMPH % 34.7 % (16-45); MEAN CELL VOLUME 84.1 fl (81-97); MEAN CORPUSCULAR HGB CONC 34.5 g/dl (32-36); MEAN PLATELET VOLUME 9.3 fl (7.4-10.4); MONO % 8.2 % (0-9); PLATELET COUNT 262 K/uL (130-400); RED BLOOD COUNT 4.03 M/uL (3.80-5.40); RED CELL DISTRIBUTION WIDTH 14.1 % (11.5-14.5); WHITE BLOOD COUNT W/O DIFF 5.7 K/uL (4.2-12.2)
[2017-09-30 01:05] LABS: ALBUMIN 4.2 g/dL (4.0-5.0)
[2017-09-30 01:06] LABS: ALB/GLOB RATIO 1.4 (1.1-1.8); BILIRUBIN,TOTAL 0.2 mg/dL (0.2-1.0); CREATININE 1.3 mg/dL (0.5-0.9); TOTAL PROTEIN 7.3 g/dL (6.6-8.7)
[2017-09-30 02:34] LABS: URINE APPEARANCE CLEAR; URINE BILIRUBIN NEGATIVE (NEGATIVE); URINE BLOOD NEGATIVE (NEGATIVE); URINE COLOR YELLOW; URINE KETONE NEGATIVE (NEGATIVE); URINE LEUKOCYTE ESTERASE NEGATIVE (NEGATIVE); URINE NITRITE NEGATIVE (NEGATIVE); URINE UROBILINOGEN 0.2 E.U./dL (0.20 - 1.00)
[2017-09-30 02:35] LABS: URINE GLUCOSE (UA) >=1000 mg/dL (NEGATIVE)
[2017-09-30 02:36] LABS: HCG,QUALITATIVE URINE NEGATIVE (NEGATIVE)
[2017-09-30] MEDS ORDERED: LIDOCAINE 5% PATCH TOP ONE (02:51)
[2017-09-30] MEDS: HYDROCODONE/APAP 5/325MG TABLET PO PRN ×2 (07:48→13:02)
[2017-09-30] MEDS: ASPIRIN 325 MG TABLET PO SCH (09:57)
[2017-09-30] MEDS: PHENYTOIN SODIUM EXTENDED 100 MG CAPSULE PO SCH ×2 (09:58→21:41)
[2017-09-30] MEDS: VENLAFAXINE ER 75 MG CAPSULE PO SCH (09:59)
[2017-09-30] MEDS: GABAPENTIN 300 MG CAPSULE PO SCH ×2 (09:59→21:41)
[2017-09-30] MEDS: CLOPIDOGREL 75MG TABLET PO SCH (10:00)
[2017-09-30] MEDS ORDERED: LEVOFLOXACIN 500 MG TABLET PO SCH (10:00)
[2017-09-30] MEDS: LEVEMIR FLEXTOUCH 100 UNIT/ML INSULIN PEN SQ SCH ×2 (10:02→21:50)
--- NOTE | 2017-09-30 10:03 | Rehab Evaluation ---
Patient Information - Patient Information Diagnosis: R Sided Rib/Abdominal Pain Ordered Treatment: PT Evaluate and Treat Status: Initial Evaluation Surgery: No Past Medical/Surgical Hx: PAST MEDICAL/SURGICAL HISTORY Past Surgical History Hip fracture hysterectomy cardiac stents x 2 BACK SURGERY CHOLECYSTECTOMY stents in legs PMH - Respiratory Hx Respiratory Disorders No PMH - Cardiovascular Hx Cardiovascular Disorders Yes Hx Cardiac Catheterization Yes Hx Chest Pain Yes Hx Heart Attack Yes PMH - Neuro Hx Neurological Disorders Yes Hx Cerebrovascular Accident Yes: 09/15/2014 Hx Neuropathy Yes Hx Seizures Yes: epileptic Comment: rt sided weakness, whelchair dependent. some speech/memory loss PMH - GI Hx Gastrointestinal Disorders No PMH - Hx Genitourinary Disorders No PMH - Endocrine Hx Endocrine Disorders Yes Hx Diabetes Yes PMH - Musculoskeletal Hx Musculoskeletal Disorders No PMH - Psych Hx Psychiatric Problems No PMH - Hematology/Oncology Hx Hematology/Oncology No Disorders Social History: Detail (The patient lives in a single story home with her daughter and her . The home has a ramp to enter, and no steps in the home. Her bathroom has a walk-in shower with a transfer bench, and she uses an elevated toilet seat. She does not have grab bars in the shower, but does around the toilet area. She says that she uses a wheelchair for mobility in the community, but uses a kelly-walker for ambulating in the home. She says that her daughter is around during the day for ADLs and her helps at night.) - Time With Patient Total Time Spent With Patient (Min): 40 Treatment Procedures: Detail (PT Initial Evaluation) Subjective Information - Subjective Information Per Patient (The patient said she had a stroke 3 years ago, and received home therapy after she returned home. About a year ago, she was standing near her closet, and had a fall where she broke her hip. She had to undergo ORIF for the hip, and returned home. Present complaint is of right sided abdominal pain that has been bothering her in spells since Friday.) Objective Data - Pain Pain Present: Yes Pain Intensity: 7 Pain Scale Used: Numeric (1 - 10) - Mental Status Patient Orientation: Oriented x3 (The patient suffers from expressive aphasia, so she has difficulty verbalizing understanding of instructions. The patient is able to respond to all questions, but increased time is required for responses to be made.) - ROM Not within normal limits (L LE hip/ankle/knee - not formally measured, but was within normal limits overall R LE - Not formally measured - Lacked DF to neutral and had moderate DF limitations. Knee flexion/extension was WFL. Hip flexion was able to reach 90 degrees.) - Strength/Tone Not within normal limits (L LE hip/knee/ankle was 5/5 throughout R LE - The patient had no active movement in bed, but was able to functionally advance the LE during ambulation Tone L LE - None Present R LE - Ankle moving into dorsiflexion 3/4 on Steffany Scale, Knee moving into flexion 2/4 on Steffany Scale, Hip moving into flexion 2/4 Steffany Scale) - Bed Mobility Independent (Supine to sit - independent with use of bed railing and head of bed elevated, but had increased pain with the movement.) - Transfers Needs Assist (The patient required hand hold assist to transfer from sit to stand. Was independent with stand to sit.) - Balance Balance Sitting: Good Balance Standing: Fair (Required use of kelly-walker and AFO on the right) - Sensation Deficit (L LE - showed no sensation deficits R LE - Had diminished sensation throughout the LE) - Gait Detail (The patient required the use of a kelly-walker on the left side and R AFO. The patient placed the kelly-walker out in front, rather than out to the side. She was able to ambulate from her room to the elevator (about 45 feet) on the [facility] floor with CGA x 2. The patient,s gait pattern was characterized by decreased stride length bilaterally, decreased weight bearing R LE, R genu recurvatum during R stance phase, R LE drag through/ hip circumduction suring R swing phase, toeing out throughout gait.) Therapy Assessment - Therapy Assessment Detail (The patient's increased right-sided abdominal pain is limiting the patient's rehab potential currently. Once the patient's source of pain is established and decreased, a better judgement on the patient's potential can be made. The patient could benefit from inpatient rehab to improve ambulation skills and transfer skills.) Problem List - Problem List Physical Therapy Problem List: Detail (1) Safety concerns with ambulation 2) Increased fall risk due to R sided weakness 3) Difficulty with transfers due to R Sided weakness 4) Increased pain of right abdominal area with unknown cause 5 ) Difficulty with communication due to expressive aphasia) Goals - Goals Physical Therapy Goals: 1) The patient will be able to transfer from sit to stand with supervision for safety. 2) The patient will require supervision only with ambulation for household distances. 3) Assess the patient's current HEP for tone management of LEs and UEs, and progress the HEP as needed for the patient. Prognosis - Prognosis Moderate Plan - Plan Physical Therapy Plan: Patient will be seen 1-2x/day M-F for gait training and transfer training for increased independence when the patient returns home. The patient may benefit from a short inpatient stay to address problems listed and increase independence at home.
--- NOTE | 2017-09-30 10:23 | Rehab Evaluation ---
Patient Information - Patient Information Diagnosis: chest wall pain Ordered Treatment: OT Evaluate and Treat Status: Initial Evaluation Surgery: No Past Medical/Surgical Hx: PAST MEDICAL/SURGICAL HISTORY Past Surgical History Hip fracture hysterectomy cardiac stents x 2 BACK SURGERY CHOLECYSTECTOMY stents in legs PMH - Respiratory Hx Respiratory Disorders No PMH - Cardiovascular Hx Cardiovascular Disorders Yes Hx Cardiac Catheterization Yes Hx Chest Pain Yes Hx Heart Attack Yes PMH - Neuro Hx Neurological Disorders Yes Hx Cerebrovascular Accident Yes: 09/15/2014 Hx Neuropathy Yes Hx Seizures Yes: epileptic Comment: rt sided weakness, whelchair dependent. some speech/memory loss PMH - GI Hx Gastrointestinal Disorders No PMH - Hx Genitourinary Disorders No PMH - Endocrine Hx Endocrine Disorders Yes Hx Diabetes Yes PMH - Musculoskeletal Hx Musculoskeletal Disorders No PMH - Psych Hx Psychiatric Problems No PMH - Hematology/Oncology Hx Hematology/Oncology No Disorders Social History: Detail (The patient lives in a single story home with her daughter and her . The home has a ramp to enter, and no steps in the home. Her bathroom has a walk-in shower with a transfer bench, and she uses an elevated toilet seat. She does not have grab bars in the shower, but does around the toilet area. She says that she uses a wheelchair for mobility in the community, but uses a kelly-walker for ambulating in the home. She says that her daughter is around during the day for ADLs and her helps at night. She required assistance for self care activities and she was not responsible for home mgmt, meal prep or laundry tasks.) Precautions: [place], Fall, Other (decreased expressive communication) - Time With Patient Total Time Spent With Patient (Min): 40 Treatment Procedures: Detail (OT eval low complexity) Subjective Information - Subjective Information Per Patient Objective Data - Pain Pain Present: Yes (03/03 right sided rib/abdominal pain) - Mental Status Patient Orientation: Oriented x3 (Pt oriented and able to follow all instructions. She displays expressive aphasia but is able to communicate using left hand as needed.) - Visual Perception Appears within normal limits for therapeutic activities (Pt wears glasses at all times.) - ROM Not within normal limits (Left UE AROM WNL, Right UE PROM limited throughout due to significant tone. Right shoulder limited to approx. 90 degrees flexion passively and she reported increased rib/side pain with passive motion of shoulder.) - Strength/Tone Not within normal limits (Left UE MMT 4+/5, Right UE not tested due to significant tone. She has no active movement of right UE. Moderate tone noted throughout right UE.) - Coordination Deficit (Left UE coordination WNL, Right UE impaired (no active motion of right UE).) - Bed Mobility Independent (Supine to sit Indly using hospital bed railing.) - Transfers Needs Assist (Pt required hand held assist for sit to stand from EOB.) - Balance Balance Sitting: Good Balance Standing: Fair - Sensation Deficit (Pt reports some altered sensation in right UE although intact to light touch.) - Gait Detail (Pt amb short distance in hallway with kelly walker and CG assist.) - ADL's/IADL's Detail (Pt requires max assist to don shoes. Nursing assisting with self cares at this time.) Therapy Assessment - Therapy Assessment Detail (Pt presents with pain which is impairing her level of functioning with mobility and ADLs.) Problem List - Problem List Occupational Therapy Problem List: Detail (1. Decreased Ind with functional mobility needed for safe and Ind return home. 2. Decreased Ind with self care activities. 3. Significant tone throughout right UE 4. Impaired expressive communication) Goals - Goals Occupational Therapy Goals: 1. Pt will be safe and Ind with transfers and functional mobility needed for ADLs. 2. Pt will be Ind with UE dressing 3. Pt will participate in activities to improve tone in right UE to allow increased Ind with ADLs. Prognosis - Prognosis Good Plan - Plan Occupational Therapy Plan: OT 2-4 days per week to address self care, functional mobility and UE function to allow safe return home. Pt may benefit from short IP rehab stay to maximize safety and Ind.
[2017-09-30] MEDS ORDERED: NOVOLOG FLEXPEN (INSULIN ASPART) 100 UNITS/ML SQ SCH (11:45)
[2017-09-30] MEDS: ACYCLOVIR 200 MG CAPSULE PO SCH ×3 (15:57→21:40)
[2017-09-30] MEDS ORDERED: TRAMADOL HCL 50 MG TABLET PO PRN (16:24)
[2017-09-30] MEDS: NOVOLOG FLEXPEN (INSULIN ASPART) 100 UNITS/ML SQ SCH (17:24)
[2017-09-30] MEDS ORDERED: METOPROLOL SUCC 25 MG TAB.ER PO SCH (22:00)
[2017-09-30] MEDS ORDERED: ATORVASTATIN 20 MG TABLET PO SCH (22:00)
[2017-10-01] MEDS: ACYCLOVIR 200 MG CAPSULE PO SCH ×2 (06:12→10:28)
[2017-10-01] MEDS: NOVOLOG FLEXPEN (INSULIN ASPART) 100 UNITS/ML SQ SCH (08:03)
--- NOTE | 2017-10-01 08:48 | CT SCAN REPORT ---
DATE: 09/30/2017 at 1:35 a.m. EXAM: CHEST CT WITHOUT CONTRAST. HISTORY: Right-sided chest pain and right upper quadrant and flank pain, worse tonight. TECHNIQUE: Axial CT scan of the chest performed without intravenous contrast at the referring physician's request. Preliminary report provided by [facility]. COMPARISON: No prior chest CT with which to compare. Comparison is made with a prior two-view chest x-ray dated 12/24/2013. FINDINGS: No acute infiltrate identified. There is a tiny pleural-based nodule in the right upper lung laterally only about 2.4 mm in size. If the patient is at high risk for malignancy, follow-up chest CT in a year's time would be suggested. Otherwise, no additional followup is necessary. Heterogeneous appearance of the visualized thyroid probably represents some very tiny nodules bilaterally. Correlation with physical examination is suggested and follow-up thyroid ultrasound may be useful. Dense, calcific-like density involving a portion of the left coronary artery may represent a stent. No pleural or pericardial effusion evident. Normal- sized mediastinal nodes are seen with no definite hilar or mediastinal adenopathy evident. Mild spurring in the spine. IMPRESSION: 1. THERE IS PROBABLY A CORONARY ARTERY STENT IN PLACE. 2. A TINY NODULE IN THE RIGHT UPPER LUNG LATERALLY DESCRIBED ABOVE. 3. NO ACUTE INFILTRATE SEEN. 4. MINOR SPURRING IN THE SPINE. 5. HETEROGENOUS APPEARANCE OF THE THYROID MAY REPRESENT SOME TINY THYROID NODULES. JOB NUMBER: [id number] [facility]
--- NOTE | 2017-10-01 09:08 | CT SCAN REPORT ---
DATE: 09/30/2017 at 1:38 a.m. EXAM: EMERGENCY CT SCAN OF THE ABDOMEN WITHOUT CONTRAST. HISTORY: Right-sided flank pain and right upper quadrant pain for a week, greatly increased tonight. TECHNIQUE: Axial CT scan of the abdomen performed without oral or intravenous contrast. Preliminary report provided by [facility]. COMPARISON: CT of the abdomen and pelvis dated 01/23/2017. SURGICAL HISTORY: Cholecystectomy, hysterectomy, heart stents. FINDINGS: The gallbladder is not identified consistent with the surgical history. No intrarenal calculi identified on either side. No hydronephrosis or hydroureter is seen with no ureteral calculus evident on either side and no bladder calculus evident. Postoperative changes in the right hip with an intramedullary mervat and compression screw in place. This was present previously as well. Evaluation of the bowel and viscera is very limited without oral or intravenous contrast. Given this limitation, no definite hepatic, splenic, adrenal, pancreatic, or right renal mass is identified. Small exophytic, low- attenuation mass arising posteriorly from the lower pole of the left kidney appears essentially unchanged from before, and although incompletely evaluated without intravenous contrast, this is presumably a small renal cyst. There is a single borderline-enlarged retroperitoneal node at the level of the left renal hilus measuring about 10 mm in maximum short axis. This was present previously as well and appears essentially unchanged. The appendix is visualized and appears of normal caliber with no appendicitis evident. No free intraperitoneal air or free intraperitoneal fluid identified. There is probably a hemilaminectomy defect at L5 on the right. Degenerative disc disease at the lumbosacral interspace. IMPRESSION: 1. POSTOPERATIVE CHOLECYSTECTOMY. POSTOPERATIVE CHANGES IN THE RIGHT HIP AND PROBABLY A HEMILAMINECTOMY AT L5 ON THE RIGHT. 2. NO DEFINITE URINARY TRACT CALCULI OR HYDRONEPHROSIS EVIDENT. 3. PROBABLE 1.4 CM LOWER POLE LEFT RENAL CYST BEFORE. 4. STABLE, MILDLY PROMINENT RETROPERITONEAL LYMPH NODE AT THE LEVEL OF THE LEFT RENAL HILUS APPEARING ESSENTIALLY UNCHANGED FROM BEFORE. 5. DEGENERATIVE DISC DISEASE OF THE LUMBOSACRAL INTERSPACE. 6. THE APPENDIX APPEARS NEGATIVE. NO FREE AIR OR FREE FLUID EVIDENT. JOB NUMBER: [id number] [facility]
--- NOTE | 2017-10-01 09:10 | History & Physical ---
History of Present Illness - Date of Service Date of Service for History & Physical: 09/30/17 - History of Present Illness Admitting Diagnosis: Chest wall pain. H/O CVA. H/O CAD History of Present Illness: 52 yo female with CC of pain in the right side/rib area starting 2 nights ago. 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 Patient presented to the ED after having acute onset of sharp pain in the right side starting from her mid back and wrapping around the front. She says it started two nights ago in the middle of the night when she had gotten up to use the restroom. she already has difficulty ambulating due to motor deficit from CVa, but with the additional pain found it nearly impossible to ambulate on her own. the pain did not get better through the day so her SO brought her in to the ED. While in the ED, patient had CBC that was unremarkable. CMP showed stage 3 moderately reduced kidney function but the rest was unremarkable. She was afebrile, UA showed glucose but no sign of infection. CT abdomen and CT chest were both negative for any acute process. Her Ddimer was not elevated. She did not have much pain relief with norco and was still having difficulty ambulating due to the pain so she was admitted for PT/OT evaluation and further work up of her pain. 09/30/17- Patient states her pain is about the same. The pain is sharp and is worse with palpation over the skin just inferior to her right breast. the pain is linear and stretches from mid back to the right front. Pain is somewhat alleviated by resting and is certainly worse with any movement like sitting up or trying to walk. Patient reports recent cough symptoms, denies fevers, chills , flank pain, or urinary symptoms. Patient denies nausea and vomiting symptoms. Patient does report history of cardiac and lower extremity stents, h/ o CVA. She has had her gallbladder removed previously. She does report history of chicken pox in her 20's. The lidocaine patch seems to help a little, but the hydrocodone has not changed her pain at all. Travel Screening - Travel/Exposure Within Last 30 Days Have you traveled within the last 30 days?: No - Travel/Exposure Within Last Year Have you traveled outside the [place] in the last year?: No - Additonal Travel Details Have you been exposed to anyone with a communicable illness?: No - Travel Symptoms Symptom Screening: None Review of Systems Constitutional: Denies: Chills, Fever, Malaise, Night sweats Eyes: Denies: Eye discharge, Eye pain ENT: Denies: Congestion, Ear pain, Epistaxis Respiratory: Denies: Cough, Dyspnea Cardiovascular: Reports: Other (right chest wall tenderness). Denies: Dyspnea on exertion Endocrine: Denies: Fatigue, Heat or cold intolerance Gastrointestinal: Denies: Abdominal pain, Nausea, Vomiting Genitourinary: Denies: Incontinence, Retention Musculoskeletal: Denies: Arthralgia, Back pain, Gout, Joint swelling Skin: Denies: Bruising, Change in color Neurological: Denies: Abnormal gait, Confusion, Headache, Seizure Psychiatric: Denies: Anxiety Hematological/Lymphatic: Denies: Anemia, Blood Clots Past Medical History - SOCIAL HISTORY Smoking Status: Former smoker Drug Use: None - RESPIRATORY Hx Respiratory Disorders: No - CARDIOVASCULAR Hx Cardio Disorders: Yes Hx Cardiac Cath: Yes Hx Chest Pain: Yes Hx Heart Attack: Yes - NEURO Hx Neuro Disorders: Yes Hx CVA: Yes (09/15/2014) Hx Neuropathy: Yes Hx Seizures: Yes (epileptic) Comment:: rt sided weakness, whelchair dependent. some speech/memory loss - GI Hx GI Disorders: No - Hx Genitourinary Disorders: No - ENDOCRINE Hx Endocrine Disorders: Yes Hx Diabetes: Yes - MUSCULOSKELETAL Hx Musculoskeletal Disorders: No - PSYCH Hx Psych Problems: No - HEMATOLOGY/ONCOLOGY Hx Hematology/Oncology Disorders: No Family Medical History Hx Cancer: Mother Hx Heart Disease: Father Hx Stroke: Mother H&P Meds/Allergies - Allergies Allergies: Allergies Allergy/AdvReac Type Severity Reaction Status Date / Time Iodinated Contrast- Oral and Allergy HIVES Verified 09/30/17 00:15 IV Dye [Iodinated Contrast Media - Oral and] Penicillins Allergy ANAPHYLAXIS Verified 09/30/17 00:15 - Home Medications Home Medications Medication Instructions Recorded Confirmed Last Taken Levofloxacin [Levaquin] 750 mg PO DAILY 09/30/17 09/30/17 Unknown - Active Medications Active Medications: Current Medications Hydrocodone Bitart/Acetaminophen ([place] 5mg/325mg) 1 each PO Q4H PRN PRN Reason: Pain - Moderate (5-7) Last Admin: 09/30/17 13:02 Dose: 1 each Acyclovir (Zovirax) 800 mg PO 5XD [facility] Stop: 10/02/17 10:01 Last Admin: 10/01/17 06:12 Dose: 800 mg Aspirin (Aspirin, Regular) 325 mg PO DAILY [facility] Last Admin: 09/30/17 09:57 Dose: 325 mg Atorvastatin Calcium (Lipitor) 40 mg PO QHS [facility] Last Admin: 09/30/17 21:40 Dose: 40 mg Clopidogrel Bisulfate (Plavix) 75 mg PO DAILY [facility] Last Admin: 09/30/17 10:00 Dose: 75 mg Gabapentin (Neurontin) 600 mg PO BID [facility] Last Admin: 09/30/17 21:41 Dose: 600 mg Insulin Aspart (Novolog Flexpen) 1 unit SQ TIDINS [facility] PRN Reason: Protocol Last Admin: 10/01/17 08:03 Dose: 12 unit Insulin Detemir (Levemir Flextouch) 50 unit SQ BID [facility] Last Admin: 09/30/17 21:50 Dose: 50 unit Metoprolol Succinate (Toprol Xl) 25 mg PO QHS [facility] Last Admin: 09/30/17 21:41 Dose: 25 mg Phenytoin Sodium (Dilantin) 300 mg PO BID [facility] Last Admin: 09/30/17 21:41 Dose: 300 mg Tramadol HCl (Ultram) 50 mg PO Q6H PRN PRN Reason: Pain - Moderate (5-7) Venlafaxine HCl (Effexor Xr) 75 mg PO DAILY [facility] Last Admin: 09/30/17 09:59 Dose: 75 mg Physical Exam - Vital Signs Vital Signs: Vital Signs - Last 24 Hrs Temp Pulse Resp BP BP Pulse Ox 10/01/17 08:30 16 10/01/17 08:00 97.3 F L 60 16 82/52 93 L 10/01/17 06:00 97.4 F L 75 16 97/51 98 09/30/17 22:00 97.9 F 83 18 115/62 96 09/30/17 21:00 79 18 09/30/17 16:00 98.2 F 79 18 109/68 95 - General General Appearance: Alert, Oriented x3, Cooperative, No acute distress Limitations: Physical limitation (right sided hemiparesis) - Head Head exam: Atraumatic, Normocephalic, Normal inspection Head exam detail: negative: Abrasion, Contusion, Lyons's sign, General tenderness, Hematoma, Laceration - Eye Eye exam: Normal appearance. negative: Conjunctival injection, Periorbital swelling, Periorbital tenderness, Scleral icterus - ENT Ear exam: negative: Auricular hematoma, Auricular trauma Nasal Exam: negative: Active bleeding, Discharge, Dried blood, Foreign body Mouth exam: negative: Drooling, Laceration, Muffled voice, Tongue elevation - Neck Neck exam: Normal inspection. negative: Meningismus, Tenderness - Respiratory Respiratory exam: Normal lung sounds bilaterally, Chest wall tenderness (right lateral chest wall). negative: Rales, Respiratory distress, Rhonchi, Stridor - Cardiovascular Cardiovascular Exam: Regular rate, Normal rhythm, Normal heart sounds - GI/Abdominal GI/Abdominal exam: Soft, Tenderness, Other (TTP RUQ, epigastric region as well right lateral chest wall). negative: Rebound, Rigid - Rectal Rectal exam: Deferred - exam: Deferred - Extremities Extremities exam: Normal inspection. negative: Pedal edema, Tenderness - Back Back exam: Denies: CVA tenderness (R), CVA tenderness (L) - Neurological Neurological exam: Abnormal gait (has to use walker), Alert, Motor sensory deficit (right sided hemiparesis 2/2 cva), Oriented X3 - Psychiatric Psychiatric exam: Normal affect, Normal mood, Other (slurred speech ) - Skin Skin exam: Normal color. negative: Abrasion, Rash Type of lesion: negative: abrasion Results - Labs Result Diagrams: 09/30/17 00:43 09/30/17 00:43 Labs Last 24 Hours: Laboratory Results - last 24 hr 09/30/17 09/30/17 09/30/17 11:30 12:19 14:53 POC Glucose Cancelled 455 H* 400 H 09/30/17 09/30/17 10/01/17 17:00 19:33 07:30 POC Glucose 349 H 287 H 212 H - Imaging and Cardiology CT scan - abdomen Status: Report reviewed (no acute process) Additional Comments: n CT scan - chest Status: Report reviewed (no acute process) VTE H&P Assessment - Risk for VTE Risk for VTE: Yes Risk Level: Moderate Risk Assessment Date: 09/30/17 Risk Assessment Time: 15:00 VTE Orders Placed or Will Be Placed: Yes Plan - Detailed Diagnosis and Plan (1) Chest wall pain Current Visit: Yes Status: Acute Base Code: R07.89 - OTHER CHEST PAIN Comment: 09/30/17- Stable. Patient has had little improvement in her pain overnight. she currently denies any respiratory symptoms, left sided chest pain , nausea, urinary symptoms. UA was negative for infection, CT abdomen and chest showed no acute processes. CBC was normal. Possibly muscle strain vs eary herpes zoster causing pain. -PT/OT ordered to evaluate ability to safely ambulate -will continue lidocaine patch and try hot/ice pack -will start oral acyclovir 800mg po 5xd for possible early zoster infection -vitals q8H (2) Type 2 diabetes mellitus Current Visit: Yes Status: Acute Qualifiers: Diabetes mellitus complication status: without complication Diabetes mellitus group home insulin use: with group home use Qualified Code(s): E11.9 - Type 2 diabetes mellitus without complications; Z79.4 - MCC (current) use of insulin; Z79.4 - equipment operator intermodal yard (current) use of insulin; Z79.4 - equipment operator intermodal yard ( current) use of insulin; Z79.4 - equipment operator intermodal yard (current) use of insulin Base Code: E11.9 - TYPE 2 DIABETES MELLITUS WITHOUT COMPLICATIONS Comment: 09/30- Blood glucose up to 455 today. She did not receive her usual sliding scale novolog today. -ADA diet -start novolog on moderate intensity sliding scale -continue home dose of levemir -QID accuchecks (3) DVT prophylaxis Current Visit: Yes Status: Acute Base Code: [id number] - Comment: 09/30/18- patient on dual antiplatelet therapy with plavix and aspirin. -will continue home medications -encourage ambulation with PT/OT (4) Full code status Current Visit: Yes Status: Acute Base Code: Z78.9 - OTHER SPECIFIED HEALTH STATUS Comment: 09/30/17- patient is full code
--- NOTE | 2017-10-01 09:51 | Discharge Summary ---
Providers Discharge Summary Date: 10/01/17 Date of admission: 09/30/17 03:02 Expected Date of Discharge: 10/01/17 Attending physician: COREEN MEJIA Primary care physician: HOME LESTER M.D. Physical Exam - Vital Signs Vital Signs: Vital Signs - Last 24 Hrs Temp Pulse Resp BP BP Pulse Ox 10/01/17 08:30 16 10/01/17 08:00 97.3 F L 60 16 82/52 93 L 10/01/17 06:00 97.4 F L 75 16 97/51 98 09/30/17 22:00 97.9 F 83 18 115/62 96 09/30/17 21:00 79 18 09/30/17 16:00 98.2 F 79 18 109/68 95 - General General Appearance: Alert, Oriented x3, Cooperative, No acute distress Limitations: Physical limitation (right sided hemiparesis) - Head Head exam: Atraumatic, Normocephalic, Normal inspection Head exam detail: negative: Abrasion, Contusion, Lyons's sign, General tenderness, Hematoma, Laceration - Eye Eye exam: Normal appearance. negative: Conjunctival injection, Periorbital swelling, Periorbital tenderness, Scleral icterus - ENT Ear exam: negative: Auricular hematoma, Auricular trauma Nasal Exam: negative: Active bleeding, Discharge, Dried blood, Foreign body Mouth exam: negative: Drooling, Laceration, Muffled voice, Tongue elevation - Neck Neck exam: Normal inspection. negative: Meningismus, Tenderness - Respiratory Respiratory exam: Normal lung sounds bilaterally, Chest wall tenderness (right lateral chest wall). negative: Rales, Respiratory distress, Rhonchi, Stridor - Cardiovascular Cardiovascular Exam: Regular rate, Normal rhythm, Normal heart sounds - GI/Abdominal GI/Abdominal exam: Soft, Tenderness (improved significantly from yesterday). negative: Rebound, Rigid - Rectal Rectal exam: Deferred - exam: Deferred - Extremities Extremities exam: Normal inspection. negative: Pedal edema, Tenderness - Back Back exam: Denies: CVA tenderness (R), CVA tenderness (L) - Neurological Neurological exam: Abnormal gait (has to use walker), Alert, Motor sensory deficit (right sided hemiparesis 2/2 cva), Oriented X3 - Psychiatric Psychiatric exam: Normal affect, Normal mood, Other (slurred speech ) - Skin Skin exam: Normal color. negative: Abrasion, Rash Type of lesion: negative: abrasion Hospitalization - Hospitalization Admission Diagnosis: Chest wall pain. H/O CVA. H/O CAD - Problem List/Discharge Diagnosis (1) Chest wall pain Current Visit: Yes Status: Acute Base Code: R07.89 - OTHER CHEST PAIN Comment: 10/01/17- Improved from 10 to a 2/10 in severity. Finds the hot pack effective for pain control. Has received 2 doses of acyclovir as well. she continues to deny any respiratory symptoms, left sided chest pain, nausea, urinary symptoms. UA was negative for infection, CT abdomen and chest showed no acute processes. CBC was normal. Possibly muscle strain vs eary herpes zoster causing pain. -will plan to discharge home today. SW has set up continued home therapy with PT /OT -will continue hot/ice pack -continue acyclovir 800mg po 5xd for possible early zoster infection -follow up with PCP in 7-10 days (2) Type 2 diabetes mellitus Current Visit: Yes Status: Acute Discharge Diagnosis: Diabetes mellitus complication status: without complication Diabetes mellitus termination clerk insulin use: with residential use Qualified Code(s): E11.9 - Type 2 diabetes mellitus without complications; Z79.4 - manager terminal (current) use of insulin; Z79.4 - manager terminal (current) use of insulin; Z79.4 - USP ( current) use of insulin; Z79.4 - USP (current) use of insulin Base Code: E11.9 - TYPE 2 DIABETES MELLITUS WITHOUT COMPLICATIONS Comment: 10/01- Blood glucose improving from 455 to 212 this morning. -will encourage her to continue ADA diet -continue home dose of levemir -resume home novolog sliding scale -follow up with pcp in 7-10 days (3) DVT prophylaxis Current Visit: Yes Status: Acute Base Code: [id number] - Comment: 10/01/18- patient on dual antiplatelet therapy with plavix and aspirin. -will continue home medications -encourage ambulation with PT/OT (4) Full code status Current Visit: Yes Status: Acute Base Code: Z78.9 - OTHER SPECIFIED HEALTH STATUS Comment: 10/01/17- patient is full code - Hospitalization Course Disposition: Home Health Service Hospital Course: 52 yo female with CC of pain in the right side/rib area starting 2 nights ago. 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 Patient presented to the ED after having acute onset of sharp pain in the right side starting from her mid back and wrapping around the front. She says it started two nights ago in the middle of the night when she had gotten up to use the restroom. she already has difficulty ambulating due to motor deficit from CVa, but with the additional pain found it nearly impossible to ambulate on her own. the pain did not get better through the day so her SO brought her in to the ED. While in the ED, patient had CBC that was unremarkable. CMP showed stage 3 moderately reduced kidney function but the rest was unremarkable. She was afebrile, UA showed glucose but no sign of infection. CT abdomen and CT chest were both negative for any acute process. Her Ddimer was not elevated. She did not have much pain relief with norco and was still having difficulty ambulating due to the pain so she was admitted for PT/OT evaluation and further work up of her pain. 09/30/17- Patient states her pain is about the same. The pain is sharp and is worse with palpation over the skin just inferior to her right breast. the pain is linear and stretches from mid back to the right front. Pain is somewhat alleviated by resting and is certainly worse with any movement like sitting up or trying to walk. Patient reports recent cough symptoms, denies fevers, chills , flank pain, or urinary symptoms. Patient denies nausea and vomiting symptoms. Patient does report history of cardiac and lower extremity stents, h/ o CVA. She has had her gallbladder removed previously. She does report history of chicken pox in her 20's. The lidocaine patch seems to help a little, but the hydrocodone has not changed her pain at all. 10/01/17- Patient reports significant improvement in her pain. She says it is a 2/ 10 compared to a 10/10 yesterday. She is able to ambulate safely with her walker. PT/OT did feel she could benefit from some continued home therapy. She finds the hot packs very helpful. She denies any cough, worsening chest pain, urinary symptoms. Her is going to call Dr. Lester for a follow up appointment today. Abnormal Labs: Abnormal Lab Results 09/30/17 09/30/17 09/30/17 Range/Units 07:30 12:19 14:53 POC Glucose 387 H 455 H* 400 H (70-110) mg/dL 09/30/17 09/30/17 10/01/17 Range/Units 17:00 19:33 07:30 POC Glucose 349 H 287 H 212 H (70-110) mg/dL Condition at Discharge: (2) Stable Discharge Medications - Discharge Medications Prescriptions: Acyclovir [Zovirax] 800 mg PO 5XD #140 capsule Lidocaine Patch [Lidoderm] 1 ea TOP DAILY #5 patch Home Medications: Ambulatory Orders Aspirin 325 mg PO DAILY 12/24/13 [Last Taken 04/03/16] Insulin Glargine,Hum.rec.anlog [Lantus] 50 unit SQ BID 12/24/13 [Last Taken Unknown] Metoprolol Succinate [Toprol Xl] 25 mg PO QPM 12/24/13 [Last Taken 04/03/16] Novolog See Protocol SQ BID 12/24/13 [Last Taken Unknown] Phenytoin Sodium Extended [Dilantin] 300 mg PO BID 12/24/13 [Last Taken 04/03/16 ] Cholecalciferol (Vitamin D3) [Vitamin D3] 2,000 unit PO BID 01/22/17 [Last Taken Unknown] Nitroglycerin [Nitrostat] 0.4 mg SL Q5MIN PRN 01/22/17 [Last Taken Unknown] Venlafaxine HCl [Effexor Xr] 75 mg PO DAILY 01/22/17 [Last Taken Unknown] Atorvastatin Calcium 40 mg PO QHS 04/10/17 [Last Taken Unknown] Clopidogrel Bisulfate [Clopidogrel] 75 mg PO DAILY 04/10/17 [Last Taken Unknown] Fenofibrate,Micronized [Fenofibrate] 134 mg PO DAILY 04/10/17 [Last Taken Unknown] Gabapentin [Neurontin] 600 mg PO BID 04/10/17 [Last Taken Unknown] Acyclovir [Zovirax] 800 mg PO 5XD #140 capsule 10/01/17 [Last Taken Unknown] Lidocaine Patch [Lidoderm] 1 ea TOP DAILY #5 patch 10/01/17 [Last Taken Unknown] Discharge Plan - Discharge Instructions Activity at Discharge: As Per Physical Therapy Diet at Discharge: Diabetic Diet Additional Instructions: Follow up with Dr. Lester in 7-10 days May continue to use the lidoderm patches as needed for pain. Use only one patch at a time. May leave the patch on for a maximum of 12 hours per day. Continue acyclovir. You will take 4 of the 200mg tablets (800mg) by mouth five times per day. Continue this for at least 3 more days. If you do not have any further pain or rash, then you may discontinue this medication. If you do develop rash, then continue this medication for the full 7 day course. Please call with any questions or concerns Return to ED for any new or worsening symptoms. Quality Measures - Quality Measures Quality Measures: Documentation of Current Medications in Medical Record, Screening for High Blood Pressure and F/U Documented - Current Medications Quality Measure: Measure #130: Documentation of Current Medications Documentation of Current Medications: <Current Medications Documented/Reviewed> [[id number]] - Blood Pressure Screening Quality Measure: Screening for High Blood Pressure and Follow-Up Documented Does Patient Have Any of the Following: Active Dx of HTN Blood Pressure Classification: Hypertensive Reading Systolic Measurement: 161 Diastolic Measurement: 71 Screening for High Blood Pressure: Patient Exclusion, Hx of HTN [G9744] - Elder Abuse Suspicion Index EASI Reference Information: Aaliyah SNOW, Pat C, Betzy D, Elroy Marques.Development and validation of a tool to assist physicians identification of elder abuse: The Elder Abuse Suspicion Index (EASI ). Journal of Elder Abuse and Neglect, 2008; 20 (3): 276-300.
[2017-10-01] MEDS: CLOPIDOGREL 75MG TABLET PO SCH (10:29)
[2017-10-01] MEDS: VENLAFAXINE ER 75 MG CAPSULE PO SCH (10:29)
[2017-10-01] MEDS: ASPIRIN 325 MG TABLET PO SCH (10:29)
[2017-10-01] MEDS: PHENYTOIN SODIUM EXTENDED 100 MG CAPSULE PO SCH (10:30)
[2017-10-01] MEDS: GABAPENTIN 300 MG CAPSULE PO SCH (10:30)
== END 2017-10-01 10:45 | disposition home health service (06) ==
LOC: ER 00:12 → MEDSURG 03:02
PROVIDERS: ADMIT Internal Medicine; ATTEND Internal Medicine
DX: R07.89 Other chest pain (principal); R10.9 Unspecified abdominal pain; E11.9 Type 2 diabetes mellitus without complications; Z79.4 Long term (current) use of insulin; Z86.73 Personal history of transient ischemic attack (TIA), and cerebral infarction without residual deficits
CPT/HCPCS: 99285 ×2; 96374; 96375; 85025; 80053; 36416 ×2; 82948 ×2; 81003; 81025; 85379; 74150; 71250; G0378 ×2; J3490 ×2; J2405; J2270; J1815 ×2; 97165; 99220; J1200; J2930

== ENCOUNTER 2018-03-27 10:12 | Emergency (ER) | payer MEDICAID ==
--- NOTE | 2018-03-27 11:10 | Emergency Department Record ---
History of Present Illness - General Chief complaint: Extremity Problem Stated complaint: toe injury Time Seen by Provider: 03/27/18 10:47 Source: Patient, Family Mode of Arrival: Wheelchair Limitations: Physical limitation - History of Present Illness Initial comments: pt stubbed her toe in the night. she has had a stroke leaving her with l sided deficits and walks with a walker.. she stibbed her toe on uneven khai scraping skin off as well MD Complaint: Extremity pain, Extremity swelling Onset/Timin -: Days(s) Location: Right, Foot History of Same: No Severity scale (1-10): 2 Quality: Aching Improves with: Immobilization Worsens with: Walking, Weight bearing Associated Symptoms: Denies other symptoms - Related Data Home Medications Medication Instructions Recorded Confirmed Last Taken Isosorbide Mononitrate [Imdur] 30 mg PO DAILY 03/27/18 03/27/18 Unknown Allergies Allergy/AdvReac Type Severity Reaction Status Date / Time Iodinated Contrast- Oral and Allergy HIVES Verified 03/27/18 10:17 IV Dye [Iodinated Contrast Media - Oral and] Penicillins Allergy ANAPHYLAXIS Verified 03/27/18 10:17 Travel Screening - Travel/Exposure Within Last 30 Days Have you traveled within the last 30 days?: No - Travel/Exposure Within Last Year Have you traveled outside the [place] in the last year?: No - Additonal Travel Details Have you been exposed to anyone with a communicable illness?: No - Travel Symptoms Symptom Screening: None Review of Systems Reviewed: No additional complaints except as noted below Constitutional: Reports: As per HPI. Denies: Chills, Fever, Malaise, Night sweats, Weakness, Weight change Eyes: Reports: As per HPI. Denies: Eye discharge, Eye pain, Photophobia, Vision change ENT: Reports: As per HPI. Denies: Congestion, Dental pain, Ear pain, Epistaxis , Hearing loss, Throat pain Respiratory: Reports: As per HPI. Denies: Cough, Dyspnea, Hemoptysis, Stridor, Wheezes Cardiovascular: Reports: As per HPI. Denies: Arrhythmia, Chest pain, Dyspnea on exertion, Edema, Murmurs, Orthopnea, Palpitations, Paroxysmal nocturnal dyspnea, Rheumatic Fever, Syncope Endocrine: Reports: As per HPI. Denies: Fatigue, Heat or cold intolerance, Polydipsia, Polyuria Gastrointestinal: Reports: As per HPI. Denies: Abdominal pain, Constipation, Diarrhea, Hematemesis, Hematochezia, Melena, Nausea, Vomiting Genitourinary: Reports: As per HPI. Denies: Abnormal menses, Discharge, Dyspareunia, Dysuria, Frequency, Hematuria, Incontinence, Retention, Urgency Musculoskeletal: Reports: As per HPI. Denies: Arthralgia, Back pain, Gout, Joint swelling, Myalgia, Neck pain Skin: Reports: As per HPI. Denies: Bruising, Change in color, Change in hair/ nails, Lesions, Pruritus, Rash Neurological: Reports: As per HPI. Denies: Abnormal gait, Confusion, Headache, Numbness, Paresthesias, Seizure, Tingling, Tremors, Vertigo, Weakness Psychiatric: Reports: As per HPI. Denies: Anxiety, Auditory hallucinations, Depression, Homicidal thoughts, Suicidal thoughts, Visual hallucinations Hematological/Lymphatic: Reports: As per HPI. Denies: Anemia, Blood Clots, Easy bleeding, Easy bruising, Swollen glands Past Medical History - SOCIAL HISTORY Smoking Status: Former smoker Alcohol Use: None Drug Use: None - RESPIRATORY Hx Respiratory Disorders: No - CARDIOVASCULAR Hx Cardio Disorders: Yes Hx Cardiac Cath: Yes Hx Chest Pain: Yes Hx Heart Attack: Yes - NEURO Hx Neuro Disorders: Yes Hx CVA: Yes (09/15/2014) Hx Neuropathy: Yes Hx Seizures: Yes (epileptic) Comment:: rt sided weakness, whelchair dependent. some speech/memory loss - GI Hx GI Disorders: No - Hx Genitourinary Disorders: No - ENDOCRINE Hx Endocrine Disorders: Yes Hx Diabetes: Yes - MUSCULOSKELETAL Hx Musculoskeletal Disorders: No - PSYCH Hx Psych Problems: No - HEMATOLOGY/ONCOLOGY Hx Hematology/Oncology Disorders: No Family Medical History Any Significant Family History?: Yes Hx Cancer: Mother Hx Heart Disease: Father Hx Stroke: Mother Physical Exam - General General Appearance: Alert, Oriented x3, Cooperative, No acute distress - Head Head exam: Normal inspection - Eye Eye exam: Normal appearance, PERRL Pupils: Normal accommodation - ENT ENT exam: Normal exam, Mucous membranes moist, Normal external ear exam, Normal orophraynx Ear exam: Normal external inspection. negative: External canal tenderness Nasal Exam: Normal inspection. negative: Discharge, Sinus tenderness Mouth exam: Normal external inspection, Tongue normal Teeth exam: Normal inspection. negative: Dental caries Throat exam: Normal inspection. negative: Tonsillar erythema, Tonsillar exudate - Neck Neck exam: Normal inspection, Full ROM. negative: Tenderness - Respiratory Respiratory exam: Normal lung sounds bilaterally. negative: Respiratory distress - Cardiovascular Cardiovascular Exam: Regular rate, Normal rhythm, Normal heart sounds - GI/Abdominal GI/Abdominal exam: Soft, Normal bowel sounds. negative: Tenderness - Rectal Rectal exam: Deferred - exam: Deferred - Extremities Extremities exam: Normal inspection, Full ROM, Normal capillary refill, Tenderness (and swelling w abrasion of tuft of great toe) - Back Back exam: Reports: Normal inspection, Full ROM. Denies: Muscle spasm, Rash noted, Tenderness - Neurological Neurological exam: Alert, CN II-XII intact, Motor sensory deficit (on r), Oriented X3. negative: Normal gait - Psychiatric Psychiatric exam: Normal affect, Normal mood - Skin Skin exam: Dry, Intact, Normal color, Warm Course Vital Signs 03/27/18 10:21 Temperature 98.2 F Pulse Rate 54 L Respiratory 20 Rate Blood Pressure 115/62 Pulse Ox 98 Disposition Disposition: Discharge Clinical Impression: Abrasion Contusion of toe of right foot Qualifiers: Encounter type: initial encounter Toe: great toe Damage to nail status: with damage Qualified Code(s): S90.211A - Contusion of right great toe with damage to nail, initial encounter Disposition: Home, Self-Care Condition: (1) Good Instructions: Foot Contusion (ED), Abrasion (ED) Additional Instructions: ice and elevate. follow up with family doctor. return sooner if worse. keep clean. apply antibiotic ointment twice a day Forms: Patient Portal Access Quality - Quality Measures Quality Measures: N/A - Blood Pressure Screening Does Patient Have Any of the Following: No Blood Pressure Classification: Normal BP Reading Systolic Measurement: 115 Diastolic Measurement: 62 Screening for High Blood Pressure: < Normal BP, F/U Not Required > [G8783]
--- NOTE | 2018-03-28 15:25 | RADIOLOGY REPORT ---
DATE: 03/27/2018 at 11:16 a.m. EXAM: RIGHT TOES. COMPARISON: Right toe radiographs dated 04/10/2017. HISTORY: Pain involving the right great toe following laceration. TECHNIQUE: Three views of the right toes; attention to the first digit. FINDINGS: No acute fracture detected. No dislocation. No radiopaque foreign body is identified. There are mild degenerative changes at the first digit metatarsophalangeal and interphalangeal joints. IMPRESSION: NO DEFINITE ACUTE OSSEOUS FINDINGS. NO RADIOPAQUE FOREIGN BODY DETECTED. JOB NUMBER: [id number] MTDD
== END 2018-03-27 12:32 | disposition home or self-care (01) ==
LOC: ER 10:12
DX: S90.211A Contusion of right great toe with damage to nail, initial encounter (principal); S90.411A Abrasion, right great toe, initial encounter; E11.9 Type 2 diabetes mellitus without complications; I25.2 Old myocardial infarction; I69.351 Hemiplegia and hemiparesis following cerebral infarction affecting right dominant side; I69.328 Other speech and language deficits following cerebral infarction; I69.311 Memory deficit following cerebral infarction; Z87.891 Personal history of nicotine dependence; W22.8XXA Striking against or struck by other objects, initial encounter; Y92.000 Kitchen of unspecified non-institutional (private) residence as the place of occurrence of the external cause
CPT/HCPCS: 73660; 99283

== ENCOUNTER 2018-05-16 15:47 | Emergency (ER) | payer MEDICAID ==
[2018-05-16] MEDS ORDERED: 0.9 % SODIUM CHLORIDE 1,000 ML BAG IV ONE (16:54)
[2018-05-16 17:07] LABS: BASO % 0.4 % (0-6); GRAN % 61.8 % (47-80); HEMATOCRIT 36.7 % (35.0-47.0); HEMOGLOBIN 11.7 gm/dl (11.6-16.0); LYMPH % 28.2 % (16-45); MEAN CORPUSCULAR HEMOGLOBIN 28.1 pg (27-33); MEAN CORPUSCULAR HGB CONC 31.9 g/dl (32-36); MEAN PLATELET VOLUME 9.2 fl (7.4-10.4); MONO % 6.6 % (0-9); PLATELET COUNT 281 K/uL (130-400); RED BLOOD COUNT 4.17 M/uL (3.80-5.40); RED CELL DISTRIBUTION WIDTH 14.1 % (11.5-14.5); WHITE BLOOD COUNT W/O DIFF 7.9 K/uL (4.2-12.2)
[2018-05-16 17:19] LABS: BILIRUBIN,TOTAL < 0.20 mg/dL (0.2-1.0); BLOOD UREA NITROGEN 28 mg/dL (6-20); CREATININE 0.9 mg/dL (0.5-0.9); EST GLOMERULAR FILTRATION RATE > 60 mL/min; TOTAL PROTEIN 6.9 g/dL (6.6-8.7)
[2018-05-16 17:21] LABS: GLUCOSE,RANDOM 136 mg/dL (74-109)
[2018-05-16] MEDS ORDERED: HYDROMORPHONE HCL 2 MG/ML VIAL IVP ONE (17:23)
[2018-05-16] MEDS ORDERED: ONDANSETRON HCL IV 4 MG/2 ML VIAL IVP ONE (17:23)
[2018-05-16 17:24] LABS: ALB/GLOB RATIO 1.2 (1.1-1.8); ALBUMIN 3.8 g/dL (4.0-5.0); ALKALINE PHOSPHATASE 171 U/L (35-104); ALT/SGPT 35 U/L (<33); AST/SGOT 30 U/L (10.0-35.0); LIPASE 44 U/L (13-60)
--- NOTE | 2018-05-16 17:34 | Emergency Department Record ---
History of Present Illness - General Chief Complaint: Abdominal Pain Stated Complaint: NAUSEA AND ABD PAIN Time Seen by Provider: 05/16/18 16:42 Source: Patient Mode of Arrival: Wheelchair Limitations: No limitations - History of Present Illness Initial Comments: pt has abd pain in rlq. she has a recent hx of cdiff . her diarrhea has let up and now she is constipated. she has been vomiting for 2 days. she has hx of a stroke w r sided deficits and is wheelchair bound MD Complaint: Abdominal pain Onset/Timin -: Days(s) Location: Suprapubic, RLQ Severity: Moderate Severity scale (1-10): 6 Quality: Aching, Cramping Consistency: Constant Improves With: Nothing Worsens With: Nothing Associated Symptoms: Constipation, Diarrhea, Nausea, Vomiting - Related Data Patient : No Home Medications Medication Instructions Recorded Confirmed Last Taken Insulin Aspart [Novolog] 1 unit SQ QID 05/16/18 05/16/18 1 Day Ago ~05/15/18 Previous Rx's Medication Instructions Recorded Promethazine HCl [Phenergan] 12.5 mg PO Q6HR #7 tablet 05/16/18 Allergies Allergy/AdvReac Type Severity Reaction Status Date / Time Iodinated Contrast- Oral and Allergy HIVES Verified 05/16/18 16:02 IV Dye [Iodinated Contrast Media - Oral and] Penicillins Allergy ANAPHYLAXIS Verified 05/16/18 16:02 Travel Screening - Travel/Exposure Within Last 30 Days Have you traveled within the last 30 days?: No - Travel/Exposure Within Last Year Have you traveled outside the [place] in the last year?: No - Additonal Travel Details Have you been exposed to anyone with a communicable illness?: No - Travel Symptoms Symptom Screening: None Review of Systems Reviewed: No additional complaints except as noted below Constitutional: Reports: As per HPI. Denies: Chills, Fever, Malaise, Night sweats, Weakness, Weight change Eyes: Reports: As per HPI. Denies: Eye discharge, Eye pain, Photophobia, Vision change ENT: Reports: As per HPI. Denies: Congestion, Dental pain, Ear pain, Epistaxis , Hearing loss, Throat pain Respiratory: Reports: As per HPI. Denies: Cough, Dyspnea, Hemoptysis, Stridor, Wheezes Cardiovascular: Reports: As per HPI. Denies: Arrhythmia, Chest pain, Dyspnea on exertion, Edema, Murmurs, Orthopnea, Palpitations, Paroxysmal nocturnal dyspnea, Rheumatic Fever, Syncope Endocrine: Reports: As per HPI. Denies: Fatigue, Heat or cold intolerance, Polydipsia, Polyuria Gastrointestinal: Reports: As per HPI, Abdominal pain, Constipation, Diarrhea, Nausea, Vomiting. Denies: Hematemesis, Hematochezia, Melena Genitourinary: Reports: As per HPI. Denies: Abnormal menses, Discharge, Dyspareunia, Dysuria, Frequency, Hematuria, Incontinence, Retention, Urgency Musculoskeletal: Reports: As per HPI. Denies: Arthralgia, Back pain, Gout, Joint swelling, Myalgia, Neck pain Skin: Reports: As per HPI. Denies: Bruising, Change in color, Change in hair/ nails, Lesions, Pruritus, Rash Neurological: Reports: As per HPI, Numbness, Weakness. Denies: Abnormal gait, Confusion, Headache, Paresthesias, Seizure, Tingling, Tremors, Vertigo Psychiatric: Reports: As per HPI. Denies: Anxiety, Auditory hallucinations, Depression, Homicidal thoughts, Suicidal thoughts, Visual hallucinations Hematological/Lymphatic: Reports: As per HPI. Denies: Anemia, Blood Clots, Easy bleeding, Easy bruising, Swollen glands Past Medical History - SOCIAL HISTORY Smoking Status: Former smoker Alcohol Use: None Drug Use: None - RESPIRATORY Hx Respiratory Disorders: No - CARDIOVASCULAR Hx Cardio Disorders: Yes Hx Cardiac Cath: Yes Hx Chest Pain: Yes Hx Heart Attack: Yes - NEURO Hx Neuro Disorders: Yes Hx CVA: Yes (09/15/2014) Hx Neuropathy: Yes Hx Seizures: Yes (epileptic) Comment:: rt sided weakness, whelchair dependent. some speech/memory loss - GI Hx GI Disorders: No - Hx Genitourinary Disorders: No - ENDOCRINE Hx Endocrine Disorders: Yes Hx Diabetes: Yes - MUSCULOSKELETAL Hx Musculoskeletal Disorders: No - PSYCH Hx Psych Problems: No - HEMATOLOGY/ONCOLOGY Hx Hematology/Oncology Disorders: No Family Medical History Any Significant Family History?: Yes Hx Cancer: Mother Hx Heart Disease: Father Hx Stroke: Mother Physical Exam - General General Appearance: Alert, Oriented x3, Cooperative, Mild distress - Head Head exam: Normal inspection - Eye Eye exam: Normal appearance, PERRL, EOMI Pupils: Normal accommodation - ENT ENT exam: Normal exam, Mucous membranes moist, Normal external ear exam, Normal orophraynx Ear exam: Normal external inspection. negative: External canal tenderness Nasal Exam: Normal inspection. negative: Discharge, Sinus tenderness Mouth exam: Normal external inspection, Tongue normal Teeth exam: Normal inspection. negative: Dental caries Throat exam: Normal inspection. negative: Tonsillar erythema, Tonsillar exudate - Neck Neck exam: Normal inspection, Full ROM. negative: Tenderness - Respiratory Respiratory exam: Normal lung sounds bilaterally. negative: Respiratory distress - Cardiovascular Cardiovascular Exam: Regular rate, Normal rhythm, Normal heart sounds - GI/Abdominal GI/Abdominal exam: Soft, Normal bowel sounds, Distended, Tenderness - Rectal Rectal exam: Deferred - exam: Deferred - Extremities Extremities exam: Normal inspection, Full ROM, Normal capillary refill. negative: Tenderness - Back Back exam: Reports: Normal inspection, Full ROM. Denies: Muscle spasm, Rash noted, Tenderness - Neurological Neurological exam: Alert, Normal gait, Oriented X3, Reflexes normal - Psychiatric Psychiatric exam: Normal affect, Normal mood - Skin Skin exam: Dry, Intact, Normal color, Warm Course Vital Signs 05/16/18 16:01 Temperature 97.9 F Pulse Rate [ 59 L Pulse Ox Probe] Respiratory 16 Rate Blood Pressure 136/74 [Left Arm] Pulse Ox 98 - Reevaluation(s) Reevaluation #1: 05/16/18 18:57 pt feels better Medical Decision Making - Lab Data Result diagrams: 05/16/18 16:30 05/16/18 16:30 Lab Results 05/16/18 05/16/18 05/16/18 Range/Units 16:30 16:30 16:30 WBC 7.9 (4.2-12.2) K/uL RBC 4.17 (3.80-5.40) M/uL Hgb 11.7 (11.6-16.0) gm/dl Hct 36.7 (35.0-47.0) % MCV 88.0 (81-97) fl MCH 28.1 (27-33) pg MCHC 31.9 L (32-36) g/dl RDW 14.1 (11.5-14.5) % Plt Count 281 (130-400) K/uL MPV 9.2 (7.4-10.4) fl Gran % 61.8 (47-80) % Lymphocytes % 28.2 (16-45) % Monocytes % 6.6 (0-9) % Eosinophils % 3.0 (0-6) % Basophils % 0.4 (0-6) % Sodium 139 (136-145) mmol/L Potassium 4.3 (3.4-4.5) mmol/L Chloride 100 (98-107) mmol/L Carbon Dioxide 26.0 (22-29) mmol/L Anion Gap 13.0 (7-16) BUN 28 H (6-20) mg/dL Creatinine 0.9 (0.5-0.9) mg/dL Estimated GFR > 60 mL/min Random Glucose 136 H (74-109) mg/dL Lactic Acid 1.1 (0.5-2.2) mmol/L Calcium 8.8 (8.6-10.0) mg/dL Total Bilirubin < 0.20 L (0.2-1.0) mg/dL AST 30 (10.0-35.0) U/L ALT 35 H (<33) U/L Alkaline Phosphatase 171 H (35-104) U/L Total Protein 6.9 (6.6-8.7) g/dL Albumin 3.8 L (4.0-5.0) g/dL Globulin 3.1 (1.4-4.8) gm/dL Albumin/Globulin Ratio 1.2 (1.1-1.8) Lipase 44 (13-60) U/L Disposition Disposition: Discharge Clinical Impression: Abdominal pain Qualifiers: Abdominal location: right lower quadrant Qualified Code(s): R10.31 - Right lower quadrant pain Constipation Qualifiers: Constipation type: unspecified constipation type Qualified Code(s): K59.00 - Constipation, unspecified Disposition: Home, Self-Care Instructions: Constipation (ED), Abdominal Pain (ED), Acute Nausea and Vomiting (ED) Additional Instructions: follow up with family doctor. return sooner if worse. push fluids Prescriptions: Promethazine HCl [Phenergan] 12.5 mg PO Q6HR #7 tablet Forms: Patient Portal Access Quality - Quality Measures Quality Measures: N/A - Blood Pressure Screening Does Patient Have Any of the Following: No Blood Pressure Classification: Normal BP Reading Systolic Measurement: 111 Diastolic Measurement: 53 Screening for High Blood Pressure: < Normal BP, F/U Not Required > [G8783]
[2018-05-16 18:43] LABS: URINE APPEARANCE CLEAR; URINE BILIRUBIN NEGATIVE (NEGATIVE); URINE BLOOD NEGATIVE (NEGATIVE); URINE COLOR YELLOW; URINE GLUCOSE (UA) NEGATIVE (NEGATIVE); URINE KETONE NEGATIVE (NEGATIVE); URINE LEUKOCYTE ESTERASE NEGATIVE (NEGATIVE); URINE NITRITE NEGATIVE (NEGATIVE); URINE UROBILINOGEN 0.2 E.U./dL (0.20 - 1.00)
[2018-05-16 18:56] LABS: URINE BACTERIA FEW SEEN; URINE EPITHELIAL CELLS 21 - 35 (FEW); URINE MUCUS MODERATE; URINE RBC 0 - 2 (NONE SEEN)
--- NOTE | 2018-05-19 06:25 | CT SCAN REPORT ---
EXAM: CT SCAN OF THE ABDOMEN AND PELVIS HISTORY: PATIENT HAS LOWER ABDOMINAL PAIN. TECHNIQUE: Serial axial CT scan of the abdomen and pelvis was performed at 2.5 mm intervals from the dome of the diaphragm down to the pubic symphysis without the use of intravenous or oral contrast. Comparison: CT scan of the abdomen and pelvis dated 09/30/17 is provided. FINDINGS: The lung windows of the lung bases demonstrate no CT evidence of a focal infiltrate or pleural effusion. The visualized heart size and contour is within normal limits. The liver demonstrates diffuse fatty infiltration. Size and contour of the liver is within normal limits. No focal hepatic lesions are identified. The spleen measures 13 cm in AP dimension. This is considered mildly enlarged. The pancreas and bilateral adrenal glands are unremarkable. The gallbladder is not visualized. The common bile duct appear unremarkable. The bilateral kidneys demonstrate no CT evidence of hydronephrosis or hydroureter. No renal or ureteral calculi are noted. Within the inferior pole of the left kidney, there is a 1.5 cm exophytic cyst which is unchanged with respect to the prior CT scan. The contour and caliber of the noncontrasted abdominal aorta is within normal limits. Within the left periaortic space, there is again identified a 1 cm in short axis diameter lymph node. A smaller subcentimeter lymph node is also identified within the left periaortic space more craniad to this lesion. These findings are unchanged in size and contour with respect to the prior examination. If there is further clinical concern then a PET CT scan can be obtained for further evaluation. The visualized bowel gas pattern is nonspecific and nonobstructive. The appendix is clearly visualized and there is no CT evidence of appendicitis. There is no CT evidence of free intraperitoneal fluid or free intraperitoneal air. The uterus is unremarkable. The urinary bladder is unremarkable. Bone windows demonstrate no CT evidence of a fracture or dislocation of the visualized osseous structures. Right hip arthroplasty is again noted. IMPRESSION: 1. STABLE CT APPEARANCE OF THE ABDOMEN AND PELVIS WITH RESPECT TO THE PRIOR EXAMINATION DISCUSSED ABOVE. NO CT EVIDENCE OF AN ACUTE INTRAABDOMINAL PROCESS. NO RENAL OR URETERAL CALCULI ARE NOTED. 2. PROMINENT LEFT PERIAORTIC LYMPH NODES ARE STABLE WITH RESPECT OT THE PRIOR CT SCAN DISCUSSED ABOVE. JOB NUMBER: [id number] MTDD
== END 2018-05-16 19:21 | disposition home or self-care (01) ==
LOC: ER 15:47
DX: R10.31 Right lower quadrant pain (principal); K59.00 Constipation, unspecified; R11.2 Nausea with vomiting, unspecified; R19.7 Diarrhea, unspecified; I25.2 Old myocardial infarction; Z87.891 Personal history of nicotine dependence
CPT/HCPCS: 99284 ×2; 96374; 96375; 96361; 83605; 83690; 85025; 80053; 81001; 74176; J2405; J1170; J7030

== ENCOUNTER 2018-07-08 17:35 | Emergency (ER) | payer MEDICAID ==
--- NOTE | 2018-07-08 18:06 | Emergency Department Record ---
History of Present Illness - General Chief Complaint: Back Pain/Injury Stated Complaint: headache,backpain Time Seen by Provider: 07/08/18 18:06 Source: Patient, RN notes reviewed - History of Present Illness Initial Comments: patient has headache and low back pain. She wake up with headache and low back pain. no vomiting and never had a headache like this before and no vomiting and no fever or chilles PMH seizure disorder and last seizure 3 years ago , DM and on lantus insulin and primary is Dr. aRvindra martinez. Slow talking. Here with her significant other. 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 and walks with a hemiwalker or a wheelchair MD Complaint: Back pain Onset/Timin -: Hour(s) Place: Home Radiation: None Severity: Moderate Severity scale (1-10): 7 Quality: Aching Consistency: Constant Improves With: None Worsens With: None Context: Unknown Associated Symptoms: Denies other symptoms Treatments Prior to Arrival: Acetaminophen Treatment Prior to Arrival Comment:: 45 minutes ago - Related Data Allergies Allergy/AdvReac Type Severity Reaction Status Date / Time Iodinated Contrast- Oral and Allergy HIVES Verified 07/08/18 17:43 IV Dye [Iodinated Contrast Media - Oral and] Penicillins Allergy ANAPHYLAXIS Verified 07/08/18 17:43 Travel Screening - Travel/Exposure Within Last 30 Days Have you traveled within the last 30 days?: No - Travel/Exposure Within Last Year Have you traveled outside the [place] in the last year?: No - Additonal Travel Details Have you been exposed to anyone with a communicable illness?: No - Travel Symptoms Symptom Screening: None Review of Systems Reviewed: No additional complaints except as noted below Constitutional: Reports: As per HPI. Denies: Chills, Fever, Malaise, Night sweats, Weakness, Weight change Eyes: Reports: As per HPI. Denies: Eye discharge, Eye pain, Photophobia, Vision change ENT: Reports: As per HPI. Denies: Congestion, Dental pain, Ear pain, Epistaxis , Hearing loss, Throat pain Respiratory: Reports: As per HPI. Denies: Cough, Dyspnea, Hemoptysis, Stridor, Wheezes Cardiovascular: Reports: As per HPI. Denies: Arrhythmia, Chest pain, Dyspnea on exertion, Edema, Murmurs, Orthopnea, Palpitations, Paroxysmal nocturnal dyspnea, Rheumatic Fever, Syncope Endocrine: Reports: As per HPI. Denies: Fatigue, Heat or cold intolerance, Polydipsia, Polyuria Gastrointestinal: Reports: As per HPI. Denies: Abdominal pain, Constipation, Diarrhea, Hematemesis, Hematochezia, Melena, Nausea, Vomiting Genitourinary: Reports: As per HPI. Denies: Abnormal menses, Discharge, Dyspareunia, Dysuria, Frequency, Hematuria, Incontinence, Retention, Urgency Musculoskeletal: Reports: As per HPI. Denies: Arthralgia, Back pain, Gout, Joint swelling, Myalgia, Neck pain Skin: Reports: As per HPI. Denies: Bruising, Change in color, Change in hair/ nails, Lesions, Pruritus, Rash Neurological: Reports: As per HPI, Headache, Other (low back pain). Denies: Abnormal gait, Confusion, Numbness, Paresthesias, Seizure, Tingling, Tremors, Vertigo, Weakness Psychiatric: Reports: As per HPI. Denies: Anxiety, Auditory hallucinations, Depression, Homicidal thoughts, Suicidal thoughts, Visual hallucinations Hematological/Lymphatic: Reports: As per HPI. Denies: Anemia, Blood Clots, Easy bleeding, Easy bruising, Swollen glands Past Medical History - SOCIAL HISTORY Smoking Status: Former smoker Alcohol Use: None Drug Use: None - RESPIRATORY Hx Respiratory Disorders: No - CARDIOVASCULAR Hx Cardio Disorders: Yes Hx Cardiac Cath: Yes Hx Chest Pain: Yes Hx Heart Attack: Yes - NEURO Hx Neuro Disorders: Yes Hx CVA: Yes (09/15/2014) Hx Neuropathy: Yes Hx Seizures: Yes (epileptic) Comment:: rt sided weakness, whelchair dependent. some speech/memory loss - GI Hx GI Disorders: No - Hx Genitourinary Disorders: No - ENDOCRINE Hx Endocrine Disorders: Yes Hx Diabetes: Yes - MUSCULOSKELETAL Hx Musculoskeletal Disorders: No - PSYCH Hx Psych Problems: No - HEMATOLOGY/ONCOLOGY Hx Hematology/Oncology Disorders: No Family Medical History Any Significant Family History?: Yes Hx Cancer: Mother Hx Heart Disease: Father Hx Stroke: Mother Physical Exam - General General Appearance: Alert, Oriented x3, Cooperative, No acute distress - Head Head exam: Normal inspection - Eye Eye exam: Normal appearance, PERRL Pupils: Normal accommodation - ENT ENT exam: Normal exam, Mucous membranes moist, Normal external ear exam, Normal orophraynx, TM's normal bilaterally Ear exam: Normal external inspection. negative: External canal tenderness Nasal Exam: Normal inspection. negative: Discharge, Sinus tenderness Mouth exam: Normal external inspection, Tongue normal Teeth exam: Normal inspection. negative: Dental caries Throat exam: Normal inspection. negative: Tonsillar erythema, Tonsillar exudate - Neck Neck exam: Normal inspection, Full ROM. negative: Tenderness - Respiratory Respiratory exam: Normal lung sounds bilaterally. negative: Respiratory distress - Cardiovascular Cardiovascular Exam: Regular rate, Normal rhythm, Normal heart sounds - GI/Abdominal GI/Abdominal exam: Soft, Normal bowel sounds. negative: Tenderness - Rectal Rectal exam: Deferred - exam: Deferred - Extremities Extremities exam: Normal inspection, Full ROM, Normal capillary refill. negative: Tenderness - Back Back exam: Reports: Normal inspection, Full ROM. Denies: Muscle spasm, Rash noted, Tenderness - Neurological Neurological exam: Abnormal gait, Alert, Motor sensory deficit, Oriented X3, Reflexes normal, Other (slow speaking ) - Psychiatric Psychiatric exam: Normal affect, Normal mood - Skin Skin exam: Dry, Intact, Normal color, Warm Course Vital Signs 07/08/18 17:47 Temperature 98 F Pulse Rate 66 Respiratory 16 Rate Blood Pressure 131/76 Pulse Ox 98 - Reevaluation(s) Reevaluation #1: 07/08/18 18:50 significant other asked to have her low back xray too care over to Dr Quintero at 7 pm awaiting labs and CT of the head Medical Decision Making - Lab Data Result diagrams: 07/08/18 18:51 07/08/18 18:51 Disposition Clinical Impression: Headache Qualifiers: Headache type: unspecified Headache chronicity pattern: acute headache Intractability: not intractable Qualified Code(s): R51 - Headache Low back pain Qualifiers: Chronicity: acute Back pain laterality: bilateral Sciatica presence: without sciatica Qualified Code(s): M54.5 - Low back pain Forms: Patient Portal Access Quality - Quality Measures Quality Measures: N/A - Blood Pressure Screening Does Patient Have Any of the Following: No Blood Pressure Classification: Pre-Hypertensive BP Reading Systolic Measurement: 131 Diastolic Measurement: 76 Screening for High Blood Pressure: < Pre-Hypertensive BP, F/U Documented > [ G8950] Pre-Hypertensive Follow-up Interventions: Referral to alternative/primary care provider.
[2018-07-08] MEDS ORDERED: 0.9 % SODIUM CHLORIDE 1000ML 1,000 ML IV PRN (18:28)
[2018-07-08 18:58] LABS: BASO % 0.9 % (0-6); EOS % 3.7 % (0-6); GRAN % 57.7 % (47-80); HEMATOCRIT 38.9 % (35.0-47.0); HEMOGLOBIN 12.7 gm/dl (11.6-16.0); LYMPH % 29.8 % (16-45); MEAN CELL VOLUME 86.4 fl (81-97); MEAN CORPUSCULAR HEMOGLOBIN 28.2 pg (27-33); MEAN CORPUSCULAR HGB CONC 32.6 g/dl (32-36); MEAN PLATELET VOLUME 9.1 fl (7.4-10.4); MONO % 7.9 % (0-9); PLATELET COUNT 257 K/uL (130-400); RED CELL DISTRIBUTION WIDTH 13.9 % (11.5-14.5); WHITE BLOOD COUNT W/O DIFF 6.6 K/uL (4.2-12.2)
[2018-07-08 19:04] LABS: CREATININE 1.1 mg/dL (0.5-0.9)
[2018-07-08 19:21] LABS: PROTHROMBIN TIME (PATIENT) 10.2 SECONDS (9.5-12.1)
[2018-07-08] MEDS ORDERED: ACETAMINOPHEN 1,000 MG/100 ML BTL IVPB ONE (20:03)
--- NOTE | 2018-07-08 20:07 | Emergency Department Record ---
History of Present Illness - General Chief Complaint: Back Pain/Injury Stated Complaint: headache,backpain Time Seen by Provider: 07/08/18 18:06 Source: Patient, RN notes reviewed - History of Present Illness Onset/Timin -: Hour(s) Place: Home Radiation: None Severity: Moderate Severity scale (1-10): 7 Quality: Aching Consistency: Constant Improves With: None Worsens With: None Context: Unknown Associated Symptoms: Denies other symptoms Treatments Prior to Arrival: Acetaminophen Treatment Prior to Arrival Comment:: 45 minutes ago - Related Data Allergies Allergy/AdvReac Type Severity Reaction Status Date / Time Iodinated Contrast- Oral and Allergy HIVES Verified 07/08/18 17:43 IV Dye [Iodinated Contrast Media - Oral and] Penicillins Allergy ANAPHYLAXIS Verified 07/08/18 17:43 Travel Screening - Travel/Exposure Within Last 30 Days Have you traveled within the last 30 days?: No - Travel/Exposure Within Last Year Have you traveled outside the [place] in the last year?: No - Additonal Travel Details Have you been exposed to anyone with a communicable illness?: No - Travel Symptoms Symptom Screening: None Review of Systems Constitutional: Reports: As per HPI. Denies: Chills, Fever, Malaise, Night sweats, Weakness, Weight change Eyes: Reports: As per HPI. Denies: Eye discharge, Eye pain, Photophobia, Vision change ENT: Reports: As per HPI. Denies: Congestion, Dental pain, Ear pain, Epistaxis , Hearing loss, Throat pain Respiratory: Reports: As per HPI. Denies: Cough, Dyspnea, Hemoptysis, Stridor, Wheezes Cardiovascular: Reports: As per HPI. Denies: Arrhythmia, Chest pain, Dyspnea on exertion, Edema, Murmurs, Orthopnea, Palpitations, Paroxysmal nocturnal dyspnea, Rheumatic Fever, Syncope Endocrine: Reports: As per HPI. Denies: Fatigue, Heat or cold intolerance, Polydipsia, Polyuria Gastrointestinal: Reports: As per HPI. Denies: Abdominal pain, Constipation, Diarrhea, Hematemesis, Hematochezia, Melena, Nausea, Vomiting Genitourinary: Reports: As per HPI. Denies: Abnormal menses, Discharge, Dyspareunia, Dysuria, Frequency, Hematuria, Incontinence, Retention, Urgency Musculoskeletal: Reports: As per HPI. Denies: Arthralgia, Back pain, Gout, Joint swelling, Myalgia, Neck pain Skin: Reports: As per HPI. Denies: Bruising, Change in color, Change in hair/ nails, Lesions, Pruritus, Rash Neurological: Reports: As per HPI, Headache, Other (low back pain). Denies: Abnormal gait, Confusion, Numbness, Paresthesias, Seizure, Tingling, Tremors, Vertigo, Weakness Psychiatric: Reports: As per HPI. Denies: Anxiety, Auditory hallucinations, Depression, Homicidal thoughts, Suicidal thoughts, Visual hallucinations Hematological/Lymphatic: Reports: As per HPI. Denies: Anemia, Blood Clots, Easy bleeding, Easy bruising, Swollen glands Past Medical History - SOCIAL HISTORY Smoking Status: Former smoker Alcohol Use: None Drug Use: None - RESPIRATORY Hx Respiratory Disorders: No - CARDIOVASCULAR Hx Cardio Disorders: Yes Hx Cardiac Cath: Yes Hx Chest Pain: Yes Hx Heart Attack: Yes - NEURO Hx Neuro Disorders: Yes Hx CVA: Yes (09/15/2014) Hx Neuropathy: Yes Hx Seizures: Yes (epileptic) Comment:: rt sided weakness, whelchair dependent. some speech/memory loss - GI Hx GI Disorders: No - Hx Genitourinary Disorders: No - ENDOCRINE Hx Endocrine Disorders: Yes Hx Diabetes: Yes - MUSCULOSKELETAL Hx Musculoskeletal Disorders: No - PSYCH Hx Psych Problems: No - HEMATOLOGY/ONCOLOGY Hx Hematology/Oncology Disorders: No Family Medical History Any Significant Family History?: Yes Hx Cancer: Mother Hx Heart Disease: Father Hx Stroke: Mother Course Vital Signs 07/08/18 07/08/18 17:47 19:32 Temperature 98 F 98.4 F Pulse Rate 66 Pulse Rate [ 63 Pulse Ox Probe] Respiratory 16 20 Rate Blood Pressure 131/76 Blood Pressure 137/81 [Left Arm] Pulse Ox 98 98 - Reevaluation(s) Reevaluation #1: The patient's care was assumed from Dr. Vásquez at 19:00. The patient is a 52 year old white female with an extensive hx of cerebral vascular dz and past CVA' s also with CAD who woke up at 4pm with pain over most of her body. The main pain she is complaining of is in her head, neck and back. She denies any trauma , fall, or new arm or leg numbness or weakness. The patient is wheelchair bound from multiple prior CVA's. She also has an extensive hx of epilepsy and is not sure if she may have had a seizure in bed prior to the onset of pain. 07/08/18 20:04 Reevaluation #2: On exam the patient's head, neck, and back pain are easily and 100% reproducible with palpation to the entire head, neck and back. She has normal chronic motor and sensory function to her arms and legs and is conversing normally. 07/08/18 20:06 Reevaluation #3: The patient is doing much better at this time. Her pain has mainly resolved and she is resting comfortably. On exam her R side is still weak which is a chronic issue and there are no new symptoms. I did discuss the need for admission to [facility] for an MRI and MRA of her head and neck but she and her significant other are refusing that plan. She understands the risks of NOT being transferred are that she could go home and have another stroke, worsening disability and . The patient understands and accepts the risks and understands we cannot be held liable for NOT admitting and transferring her there. She is to go home and take her pain medicines and see her PCP later this week for recheck. 07/08/18 21:16 Medical Decision Making - Data Complexity MDM Data: Labs Ordered and/or Reviewed, X-Ray Ordered and/or Reviewed - Lab Data Result diagrams: 07/08/18 18:51 07/08/18 18:51 Lab Results 07/08/18 07/08/18 07/08/18 Range/Units 18:51 18:51 18:51 WBC 6.6 (4.2-12.2) K/uL RBC 4.50 (3.80-5.40) M/uL Hgb 12.7 (11.6-16.0) gm/dl Hct 38.9 (35.0-47.0) % MCV 86.4 (81-97) fl MCH 28.2 (27-33) pg MCHC 32.6 (32-36) g/dl RDW 13.9 (11.5-14.5) % Plt Count 257 (130-400) K/uL MPV 9.1 (7.4-10.4) fl Gran % 57.7 (47-80) % Lymphocytes % 29.8 (16-45) % Monocytes % 7.9 (0-9) % Eosinophils % 3.7 (0-6) % Basophils % 0.9 (0-6) % PT (9.5-12.1) SECONDS INR APTT 32.9 (24.5-39.1) SECONDS Sodium 142 (136-145) mmol/L Potassium 4.3 (3.4-4.5) mmol/L Chloride 104 (98-107) mmol/L Carbon Dioxide 25.0 (22-29) mmol/L Anion Gap 13.0 (7-16) BUN 29 H (6-20) mg/dL Creatinine 1.1 H (0.5-0.9) mg/dL Estimated GFR 55 mL/min Random Glucose 92 (74-109) mg/dL Calcium 9.0 (8.6-10.0) mg/dL 07/08/18 Range/Units 18:51 WBC (4.2-12.2) K/uL RBC (3.80-5.40) M/uL Hgb (11.6-16.0) gm/dl Hct (35.0-47.0) % MCV (81-97) fl MCH (27-33) pg MCHC (32-36) g/dl RDW (11.5-14.5) % Plt Count (130-400) K/uL MPV (7.4-10.4) fl Gran % (47-80) % Lymphocytes % (16-45) % Monocytes % (0-9) % Eosinophils % (0-6) % Basophils % (0-6) % PT 10.2 (9.5-12.1) SECONDS INR 1.0 APTT (24.5-39.1) SECONDS Sodium (136-145) mmol/L Potassium (3.4-4.5) mmol/L Chloride (98-107) mmol/L Carbon Dioxide (22-29) mmol/L Anion Gap (7-16) BUN (6-20) mg/dL Creatinine (0.5-0.9) mg/dL Estimated GFR mL/min Random Glucose (74-109) mg/dL Calcium (8.6-10.0) mg/dL - Radiology Data Radiology results: Report reviewed (Head CT: Old large infarct L frontal, temporal, parieatal area with small L occipital infarct. Lumbar spine: DJD, neg for acute changes.) Disposition Disposition: Discharge Clinical Impression: Headache Qualifiers: Headache type: unspecified Headache chronicity pattern: acute headache Intractability: not intractable Qualified Code(s): R51 - Headache Low back pain Qualifiers: Chronicity: acute Back pain laterality: bilateral Sciatica presence: without sciatica Qualified Code(s): M54.5 - Low back pain Disposition: Home, Self-Care Condition: (2) Stable Instructions: Low Back Strain (ED), Acute Headache (ED) Additional Instructions: Please continue your regular medicines and see your doctor later this week for recheck. Return to the ER for any worsening symptoms. Forms: Patient Portal Access Time of Disposition: 21:20 Quality - Quality Measures Quality Measures: N/A - Blood Pressure Screening View Details: Yes Does Patient Have Any of the Following: No Blood Pressure Classification: Pre-Hypertensive BP Reading Systolic Measurement: 131 Diastolic Measurement: 76 Screening for High Blood Pressure: < Pre-Hypertensive BP, F/U Documented > [ G8950] Pre-Hypertensive Follow-up Interventions: Referral to alternative/primary care provider.
[2018-07-08] MEDS ORDERED: DIPHENHYDRAMINE HCL 50 MG/ML VIAL IVP ONE (20:58)
[2018-07-08] MEDS ORDERED: METOCLOPRAMIDE HCL 10 MG/2 ML VIAL IVP ONE (20:58)
--- NOTE | 2018-07-10 07:05 | RADIOLOGY REPORT ---
EXAM: LUMBAR SPINE, TWO VIEWS HISTORY: HEADACHES AND BACK PAIN AFTER WAKING UP. TECHNIQUE: AP and lateral views of the lumbar spine were obtained. Comparison: Lumbar spine 12/24/13. FINDINGS: Postop changes partially seen in the right hip. Mild spurring scattered throughout the visualized thoracic and lumbar spine. Degenerative disk disease of the lumbosacral interspace similar to that seen previously. Prominent facet joint arthropathy in the lower lumbar spine. Otherwise, the lumbar spine appear essentially negative with this study somewhat limited without oblique views. No definite fracture or destructive lesion in the lumbar spine identified. Prominent vascular calcification. IMPRESSION: DEGENERATIVE CHANGES PARTICULARLY IN THE LOWER LUMBAR SPINE DESCRIBED ABOVE. JOB NUMBER: [id number] MTDD
--- NOTE | 2018-07-10 07:39 | CT SCAN REPORT ---
EXAM: EMERGENCY CT SCAN OF THE HEAD HISTORY: HEADACHE AND LOW BACK PAIN AFTER WAKING UP TWO HOURS AGO. TECHNIQUE: Axial CT scan of the head was performed without IV contrast. Comparison: Head CT 03/15/17. FINDINGS: No definite acute intracranial hemorrhage identified. No focal mass effect or midline shift evident. Apparent large old area of infarction in the left frontal temporal parietal region as before and a small old infarct in the left occipital lobe posteriorly as before. No definite acute infarct or intracranial mass lesion seen. Some membrane thickening posteriorly in the left ethmoid sinus, new from the prior study. IMPRESSION: 1. GENERALIZED ATROPHY BEFORE. 2. MULTIPLE AREAS OF OLD INFARCTION IN THE LEFT CEREBRAL HEMISPHERE BEFORE. 3. NO DEFINITE ACUTE INTRACRANIAL HEMORRHAGE OR FOCAL MASS EFFECT EVIDENT. JOB NUMBER: [id number] MTDD
== END 2018-07-08 21:37 | disposition home or self-care (01) ==
LOC: ER 17:35
DX: R51 Headache (principal); M54.5 Low back pain; G40.909 Epilepsy, unspecified, not intractable, without status epilepticus; I69.928 Other speech and language deficits following unspecified cerebrovascular disease; I69.951 Hemiplegia and hemiparesis following unspecified cerebrovascular disease affecting right dominant side; E11.9 Type 2 diabetes mellitus without complications; Z79.4 Long term (current) use of insulin; Z87.891 Personal history of nicotine dependence; I25.2 Old myocardial infarction
CPT/HCPCS: 70450; 72100; 80048; 85025; 85610; 85730; 96361; 96374; 96375; 99284; J1200; J2765

== ENCOUNTER 2018-09-06 21:01 | Emergency (ER) | payer MEDICAID ==
[2018-09-06] MEDS ORDERED: 0.9 % SODIUM CHLORIDE 1,000 ML BAG IV ONE (21:19)
[2018-09-06] MEDS ORDERED: ACETAMINOPHEN 1,000 MG/100 ML BTL IVPB ONE (21:19)
[2018-09-06] MEDS ORDERED: METOCLOPRAMIDE HCL 10 MG/2 ML VIAL IVP ONE (21:19)
[2018-09-06] MEDS ORDERED: DIPHENHYDRAMINE HCL 50 MG/ML VIAL IVP ONE (21:19)
--- NOTE | 2018-09-06 21:27 | Emergency Department Record ---
History of Present Illness - General Chief Complaint: Headache Migraine Stated Complaint: MIGRAINE Time Seen by Provider: 09/06/18 21:13 Source: Patient, Family Mode of Arrival: Wheelchair (Her baseline is that she is in a wheelchair) Limitations: No limitations - History of Present Illness Initial Comments: 53 yo female presents with a gradually worsening migraine that started this morning. At breakfast it was very mild and started mild. Slowly over the day it has worsened. She has a history of occasionally migraine. She has light sensitivity and nausea. No fever. No trauma. She has a history of CVA (5 years ago), seizures (last about 4 years ago). Her last ED visit for headache was in June and February of 2017. She had a negative HCT at that time. No new changes in her baseline stroke symptoms of right side weakness. MD Complaint: "Migraine" Onset/Timin -: Days(s) Onset Description: Gradual Location: Frontal Severity: Moderate Quality: Aching Consistency: Constant Improves With: Nothing Worsens With: Light Context: Occured at rest Associated Symptoms: Fever, Nausea Other Symptoms: Cough Treatments Prior to Arrival: None - Related Data Allergies Allergy/AdvReac Type Severity Reaction Status Date / Time Iodinated Contrast- Oral and Allergy HIVES Verified 07/08/18 17:43 IV Dye [Iodinated Contrast Media - Oral and] Penicillins Allergy ANAPHYLAXIS Verified 07/08/18 17:43 Travel Screening - Travel/Exposure Within Last 30 Days Have you traveled within the last 30 days?: No Review of Systems Constitutional: Denies: Chills, Fever, Malaise, Weakness Eyes: Denies: Eye discharge ENT: Reports: Congestion. Denies: Throat pain Respiratory: Reports: Cough (minimal). Denies: Dyspnea Cardiovascular: Denies: Chest pain, Syncope Endocrine: Denies: Fatigue Gastrointestinal: Reports: Nausea. Denies: Abdominal pain, Diarrhea Genitourinary: Denies: Dysuria, Urgency Musculoskeletal: Denies: Arthralgia, Back pain, Myalgia, Neck pain Skin: Denies: Bruising, Change in color, Rash Neurological: Reports: Headache, Weakness (chronic stable) Psychiatric: Denies: Anxiety Hematological/Lymphatic: Denies: Easy bleeding, Easy bruising, Swollen glands Past Medical History - SOCIAL HISTORY Smoking Status: Former smoker Alcohol Use: None Drug Use: None - RESPIRATORY Hx Respiratory Disorders: No - CARDIOVASCULAR Hx Cardio Disorders: Yes Hx Cardiac Cath: Yes Hx Chest Pain: Yes Hx Heart Attack: Yes - NEURO Hx Neuro Disorders: Yes Hx CVA: Yes (09/15/2014) Hx Neuropathy: Yes 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 some speech/memory loss - GI Hx GI Disorders: No - Hx Genitourinary Disorders: No - ENDOCRINE Hx Endocrine Disorders: Yes Hx Diabetes: Yes - MUSCULOSKELETAL Hx Musculoskeletal Disorders: No - PSYCH Hx Psych Problems: No - HEMATOLOGY/ONCOLOGY Hx Hematology/Oncology Disorders: No Family Medical History Any Significant Family History?: Yes Hx Cancer: Mother Hx Heart Disease: Father Hx Stroke: Mother Physical Exam - General General Appearance: Alert, Oriented x3, Cooperative, No acute distress Limitations: No limitations - Head Head exam: Atraumatic, Normocephalic, Normal inspection - Eye Eye exam: Normal appearance, PERRL, EOMI. negative: Conjunctival injection, Nystagmus, Periorbital swelling - ENT ENT exam: Normal exam, Mucous membranes moist, Normal orophraynx. negative: Mucous membranes dry Ear exam: Normal external inspection Nasal Exam: Normal inspection Mouth exam: Normal external inspection Teeth exam: Normal inspection Throat exam: Normal inspection. negative: Tonsillar erythema, Tonsillomegaly - Neck Neck exam: Normal inspection, Full ROM, Other (supple, full ROM without discomfort). negative: Lymphadenopathy, Meningismus, Tenderness - Respiratory Respiratory exam: Normal lung sounds bilaterally. negative: Respiratory distress - Cardiovascular Cardiovascular Exam: Regular rate, Normal rhythm, Normal heart sounds Peripheral Pulses: 2+: Radial (R), Radial (L) - GI/Abdominal GI/Abdominal exam: Soft - Rectal Rectal exam: Deferred - exam: Deferred - Extremities Extremities exam: Normal inspection. negative: Full ROM, Pedal edema, Tenderness - Back Back exam: Denies: CVA tenderness (R), CVA tenderness (L), Rash noted - Neurological Neurological exam: Abnormal gait (uses wheelchair), Alert, Altered, CN II-XII intact, Motor sensory deficit (RUE/RLE chronic weakness - at baseline per the .), Oriented X3. negative: Normal gait - Psychiatric Psychiatric exam: Normal affect, Normal mood. negative: Agitated, Anxious, Flat affect - Skin Skin exam: Dry, Intact, Normal color, Warm. negative: Cyanosis, Diaphoretic, Mottled Course Vital Signs 09/06/18 21:11 Temperature 98 F Pulse Rate [ 60 Pulse Ox Probe] Respiratory 24 Rate Blood Pressure 147/75 [Left Arm] Pulse Ox 97 - Reevaluation(s) Reevaluation #1: No acute changes on the vitals The patient is at her baseline regarding the deficits from her prior stroke EMR reviewed from June. HCT negative Gradual onset, no trauma or fever, baseline neurologic examination. 09/06/18 21:29 CMP with glucose of 329 with normal AG and HCO3. She is a diabetic No acute changes. CBC without significant abnormalities. 09/06/18 22:32 09/06/18 22:46 The patient infusion just completed. She reports she is now starting to feel better. No current nausea. 09/06/18 23:04 On recheck the patient states she is greatly improved. No nausea and the pain is nearly gone. She is ready for DC We discussed home care, close follow up with her doctor and reasons for a recheck or return. Medical Decision Making - Lab Data Result diagrams: 09/06/18 21:50 09/06/18 21:50 Disposition Disposition: Discharge Clinical Impression: Headache Disposition: Home, Self-Care Condition: (1) Good Instructions: Acute Headache (ED) Additional Instructions: Call your doctor tomorrow for close follow up Return or be seen if the symptoms return Rest and stay well hydrated Monitor your blood sugars as today's was elevated Forms: Patient Portal Access Time of Disposition: 23:06 Quality - Quality Measures Quality Measures: N/A - Blood Pressure Screening Does Patient Have Any of the Following: Active Dx of HTN Blood Pressure Classification: Hypertensive Reading Systolic Measurement: 147 Diastolic Measurement: 75 Screening for High Blood Pressure: Patient Exclusion, Hx of HTN [G9744]
[2018-09-06 21:56] LABS: BASO % 0.7 % (0-6); EOS % 4.3 % (0-6); GRAN % 54.7 % (47-80); LYMPH % 32.1 % (16-45); MEAN CELL VOLUME 85.4 fl (81-97); MEAN CORPUSCULAR HEMOGLOBIN 27.6 pg (27-33); MEAN CORPUSCULAR HGB CONC 32.4 g/dl (32-36); MEAN PLATELET VOLUME 9.2 fl (7.4-10.4); MONO % 8.2 % (0-9); PLATELET COUNT 216 K/uL (130-400); RED BLOOD COUNT 3.98 M/uL (3.80-5.40); RED CELL DISTRIBUTION WIDTH 14.3 % (11.5-14.5); WHITE BLOOD COUNT W/O DIFF 5.9 K/uL (4.2-12.2)
[2018-09-06 22:05] LABS: BILIRUBIN,TOTAL < 0.20 mg/dL (0.2-1.0); BLOOD UREA NITROGEN 31 mg/dL (6-20); EST GLOMERULAR FILTRATION RATE > 60 mL/min
[2018-09-06 22:06] LABS: TOTAL PROTEIN 6.2 g/dL (6.6-8.7)
[2018-09-06 22:08] LABS: GLUCOSE,RANDOM 329 mg/dL (74-109)
[2018-09-06 22:09] LABS: PARTIAL THROMBOPLASTIN TIME 29.8 SECONDS (24.5-39.1); PROTHROMBIN TIME (PATIENT) 10.1 SECONDS (9.5-12.1)
[2018-09-06 22:10] LABS: ALT/SGPT 38 U/L (<33); AST/SGOT 27 U/L (10.0-35.0)
[2018-09-06 22:11] LABS: ALB/GLOB RATIO 1.1 (1.1-1.8); ALBUMIN 3.2 g/dL (4.0-5.0); ALKALINE PHOSPHATASE 218 U/L (45-87)
== END 2018-09-06 23:18 | disposition home or self-care (01) ==
LOC: ER 21:01
DX: R51 Headache (principal); R11.0 Nausea; R05 Cough; Z87.891 Personal history of nicotine dependence; E11.9 Type 2 diabetes mellitus without complications; Z79.4 Long term (current) use of insulin; I69.851 Hemiplegia and hemiparesis following other cerebrovascular disease affecting right dominant side; I25.2 Old myocardial infarction
CPT/HCPCS: 80053; 85025; 85610; 85730; 96365; 96375; 99284; J1200; J2765; J7030

== ENCOUNTER 2019-01-14 16:15 | Emergency (ER) | payer MEDICAID ==
[2019-01-14 17:15] LABS: ABSOLUTE NEUTROPHIL COUNT 3.31; BASO % 0.5 % (0-6); EOS % 3.8 % (0-6); GRAN % 59.2 % (47-80); HEMATOCRIT 36.1 % (35.0-47.0); HEMOGLOBIN 11.9 gm/dl (11.6-16.0); LYMPH % 28.4 % (16-45); MEAN CELL VOLUME 84.3 fl (81-97); MEAN CORPUSCULAR HEMOGLOBIN 27.8 pg (27-33); MEAN PLATELET VOLUME 9.3 fl (7.4-10.4); MONO % 8.1 % (0-9); PLATELET COUNT 252 K/uL (130-400); RED BLOOD COUNT 4.28 M/uL (3.80-5.40); RED CELL DISTRIBUTION WIDTH 14.6 % (11.5-14.5); WHITE BLOOD COUNT W/O DIFF 5.6 K/uL (4.2-12.2)
[2019-01-14 17:28] LABS: BLOOD UREA NITROGEN 29 mg/dL (6-20)
[2019-01-14 17:29] LABS: EST GLOMERULAR FILTRATION RATE > 60 mL/min
[2019-01-14 17:31] LABS: GLUCOSE,RANDOM 221 mg/dL (74-109)
--- NOTE | 2019-01-14 18:42 | Emergency Department Record ---
History of Present Illness - General Chief Complaint: Dizziness Stated Complaint: MY HAVE HAD A MINI STROKE Time Seen by Provider: 01/14/19 16:50 Source: Patient, Family Mode of Arrival: Wheelchair Limitations: No limitations - History of Present Illness Initial Comments: pt was brought in by so for stroke symptoms that have been going on for 24hrs. she has a hx of a previous stroke which left her with r sided weakness. today she has increased r sided weakness and expressive aphasia. Onset/Timin -: Hour(s) Timing: Awoke with symptoms Description: Other History of Same: Yes History of Trauma: No Severity: Moderate Improves With: Nothing Worsens With: Nothing Associated Symptoms: Denies other symptoms - Veronica Coma Scale Eye Response: (4) Open spontaneously Motor Response: (6) Obeys commands Verbal Response: (5) Oriented Veronica Total: 15 - Symptoms of Stroke Onset of Symptoms Date: 01/13/19 Onset of Symptoms Time: 16:00 Symptom Onset Unknown: Yes Symptoms of stroke: Muscle Weakness, Slurred Speech, Speech Dysfunction - Related Data Allergies Allergy/AdvReac Type Severity Reaction Status Date / Time Iodinated Contrast- Oral and Allergy HIVES Verified 01/14/19 16:30 IV Dye [Iodinated Contrast Media - Oral and] Penicillins Allergy ANAPHYLAXIS Verified 01/14/19 16:30 Travel Screening - Travel/Exposure Within Last 30 Days Have you traveled within the last 30 days?: No - Travel/Exposure Within Last Year Have you traveled outside the [place] in the last year?: No - Additonal Travel Details Have you been exposed to anyone with a communicable illness?: No - Travel Symptoms Symptom Screening: None Review of Systems Reviewed: No additional complaints except as noted below Constitutional: Reports: As per HPI. Denies: Chills, Fever, Malaise, Night sweats, Weakness, Weight change Eyes: Reports: As per HPI. Denies: Eye discharge, Eye pain, Photophobia, Vision change ENT: Reports: As per HPI. Denies: Congestion, Dental pain, Ear pain, Epistaxis, Hearing loss, Throat pain Respiratory: Reports: As per HPI. Denies: Cough, Dyspnea, Hemoptysis, Stridor, Wheezes Cardiovascular: Reports: As per HPI. Denies: Arrhythmia, Chest pain, Dyspnea on exertion, Edema, Murmurs, Orthopnea, Palpitations, Paroxysmal nocturnal dyspnea, Rheumatic Fever, Syncope Endocrine: Reports: As per HPI. Denies: Fatigue, Heat or cold intolerance, Polydipsia, Polyuria Gastrointestinal: Reports: As per HPI. Denies: Abdominal pain, Constipation, Diarrhea, Hematemesis, Hematochezia, Melena, Nausea, Vomiting Genitourinary: Reports: As per HPI. Denies: Abnormal menses, Discharge, Dys pareunia, Dysuria, Frequency, Hematuria, Incontinence, Retention, Urgency Musculoskeletal: Reports: As per HPI. Denies: Arthralgia, Back pain, Gout, Joint swelling, Myalgia, Neck pain Skin: Reports: As per HPI. Denies: Bruising, Change in color, Change in hair/nails, Lesions, Pruritus, Rash Neurological: Reports: As per HPI, Abnormal gait, Weakness. Denies: Confusion, Headache, Numbness, Paresthesias, Seizure, Tingling, Tremors, Vertigo Psychiatric: Reports: As per HPI. Denies: Anxiety, Auditory hallucinations, Depression, Homicidal thoughts, Suicidal thoughts, Visual hallucinations Hematological/Lymphatic: Reports: As per HPI. 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 some speech/memory loss - GI Hx GI Disorders: No - Hx Genitourinary Disorders: No - ENDOCRINE Hx Endocrine Disorders: Yes Hx Diabetes: Yes - MUSCULOSKELETAL Hx Musculoskeletal Disorders: No - PSYCH Hx Psych Problems: No - HEMATOLOGY/ONCOLOGY Hx Hematology/Oncology Disorders: No Family Medical History Any Significant Family History?: Yes Hx Cancer: Mother Hx Heart Disease: Father Hx Stroke: Mother Physical Exam - General General Appearance: Alert, Oriented x3, Cooperative, Mild distress - Head Head exam: Normal inspection - Eye Eye exam: Normal appearance, PERRL, EOMI Pupils: Normal accommodation - ENT ENT exam: Normal exam, Mucous membranes moist, Normal external ear exam, Normal orophraynx Ear exam: Normal external inspection. negative: External canal tenderness Nasal Exam: Normal inspection. negative: Discharge, Sinus tenderness Mouth exam: Normal external inspection, Tongue normal Teeth exam: Normal inspection. negative: Dental caries Throat exam: Normal inspection. negative: Tonsillar erythema, Tonsillar exudate - Neck Neck exam: Normal inspection, Full ROM. negative: Tenderness - Respiratory Respiratory exam: Normal lung sounds bilaterally. negative: Respiratory distress - Cardiovascular Cardiovascular Exam: Regular rate, Normal rhythm, Normal heart sounds - GI/Abdominal GI/Abdominal exam: Soft, Normal bowel sounds. negative: Tenderness - Rectal Rectal exam: Deferred - exam: Deferred - Extremities Extremities exam: Normal inspection, Full ROM, Normal capillary refill. negative: Tenderness - Back Back exam: Reports: Normal inspection, Full ROM. Denies: Muscle spasm, Rash noted, Tenderness - Neurological Neurological exam: Alert, CN II-XII intact, Motor sensory deficit, Oriented X3, Other (expressive aphasia). negative: Normal gait - Psychiatric Psychiatric exam: Normal affect, Normal mood - Skin Skin exam: Dry, Intact, Normal color, Warm Stroke Assessment - NIH Stroke Scale 1a. Level of Consciousness: (0) Alert 1b. LOC Questions: (0) Answers Correctly 1c. LOC Commands: (0) Performs Tasks Correctly 2. Best Gaze: (0) Normal 3. Visual: (0) No Visual Loss 4. Facial Palsy: (2) Partial Paralysis 5a. Motor Arm Left: (0) No Drift 5b. Motor Arm Right: (3) No Hoffman Effort 6a. Motor Leg Left: (0) No Drift 6b. Motor Leg Right: (3) No Hoffman Effort 7. Limb Ataxia: (2) Present 2 Limbs 8. Sensory: (1) Mild/Moderate Sensory Loss 9. Best Language: (1) Mild/Moderate Aphasia 10. Dysarthria: (1) Mild/Moderate Dysarthria 11. Extinction/Inattention: (0) No Abnormality NIH Stoke Scale Total: 13 Course Vital Signs 01/14/19 01/14/19 17:16 18:26 Pulse Rate [ 61 61 Pulse Ox Probe] Respiratory 20 16 Rate Blood Pressure 121/74 134/71 [Left Arm] Pulse Ox 100 97 Medical Decision Making - Lab Data Result diagrams: 01/14/19 16:55 01/14/19 16:55 Lab Results 01/14/19 01/14/19 01/14/19 Range/Units 16:55 16:55 16:55 WBC 5.6 (4.2-12.2) K/uL RBC 4.28 (3.80-5.40) M/uL Hgb 11.9 (11.6-16.0) gm/dl Hct 36.1 (35.0-47.0) % MCV 84.3 (81-97) fl MCH 27.8 (27-33) pg MCHC 33.0 (32-36) g/dl RDW 14.6 H (11.5-14.5) % Plt Count 252 (130-400) K/uL MPV 9.3 (7.4-10.4) fl Gran % 59.2 (47-80) % Lymphocytes % 28.4 (16-45) % Monocytes % 8.1 (0-9) % Eosinophils % 3.8 (0-6) % Basophils % 0.5 (0-6) % Absolute Neutrophils 3.31 APTT 31.9 (24.5-39.1) SECONDS Sodium 141 (136-145) mmol/L Potassium 4.3 (3.4-4.5) mmol/L Chloride 104 (98-107) mmol/L Carbon Dioxide 26.0 (22-29) mmol/L Anion Gap 11.0 (7-16) BUN 29 H (6-20) mg/dL Creatinine 1.0 H (0.5-0.9) mg/dL Estimated GFR > 60 mL/min Random Glucose 221 H (74-109) mg/dL Calcium 9.0 (8.6-10.0) mg/dL Disposition Disposition: Transfer Clinical Impression: Stroke Qualifiers: CVA mechanism: unspecified Qualified Code(s): I63.9 - Cerebral infarction, unspecified Disposition: Acute Care Hospital Transfer Transfer To: [facility] Reason For Transfer: stroke Accepting Physician: tiffany lindsey and parag Time Discussed w/Accepting Physician: 19:00 Forms: Patient Portal Access Quality - Quality Measures Quality Measures: N/A - Blood Pressure Screening Does Patient Have Any of the Following: No Blood Pressure Classification: Pre-Hypertensive BP Reading Systolic Measurement: 134 Diastolic Measurement: 71 Screening for High Blood Pressure: < Pre-Hypertensive BP, F/U Documented > [G8950] Pre-Hypertensive Follow-up Interventions: Follow-up with rescreen every year.
--- NOTE | 2019-01-17 16:10 | CT SCAN REPORT ---
EXAM: CT SCAN HEAD WO CONTRAST HISTORY: STROKE-LIKE SYMPTOMS. INCREASED RIGHT-SIDED WEAKNESS, SLURRED SPEECH. HISTORY OF STROKE FOUR YEARS AGO RESULTING IN RIGHT-SIDED WEAKNESS. TECHNIQUE: Noncontrast head CT. COMPARISON: Head CT 07/08/2018. FINDINGS: A large area of encephalomalacia is again identified involving portions of the left frontal lobe, temporal lobe, and parietal lobes. This is likely due to an old infarction. There has been no change from the patient's previous study. There is ex vacuo dilatation of the left lateral ventricle. There is no CT evidence for large acute territorial infarct. There is no mass or mass effect. No acute intra or extraaxial hemorrhage identified. No fracture or acute osseous abnormality. The visualized orbits and sinuses are unremarkable. IMPRESSION: 1. AREAS OF OLD INFARCTION INVOLVING THE LEFT FRONTAL TEMPORAL REGION AND THE LEFT PARIETOOCCIPITAL REGION, SIMILAR TO THE PREVIOUS STUDY. 2. NO MASS, HEMORRHAGE, OR ACUTE INTRACRANIAL PROCESS. JOB NUMBER: [id number] MTDD
== END 2019-01-14 20:43 | disposition short-term general hospital (02) ==
LOC: ER 16:15
DX: I63.9 Cerebral infarction, unspecified (principal); R47.01 Aphasia; G81.91 Hemiplegia, unspecified affecting right dominant side; R29.713 NIHSS score 13; I69.351 Hemiplegia and hemiparesis following cerebral infarction affecting right dominant side; I25.2 Old myocardial infarction; E11.9 Type 2 diabetes mellitus without complications; Z79.4 Long term (current) use of insulin; Z87.891 Personal history of nicotine dependence
CPT/HCPCS: 70450; 80048; 85025; 85730; 93005; 93010; 99285

== ENCOUNTER 2019-06-23 20:13 | Emergency (ER) | payer MEDICAID ==
[2019-06-23] MEDS ORDERED: KETOROLAC 30 MG/ML VIAL IVP ONE (20:23)
--- NOTE | 2019-06-23 20:29 | Emergency Department Record ---
History of Present Illness - General Stated Complaint: BACK PAIN Time Seen by Provider: 06/23/19 20:14 Source: Patient Mode of Arrival: Wheelchair Limitations: No limitations - History of Present Illness Initial Comments: 53 yo female presents to ED for evaluation of low back pain symptoms for the past 2-3 days, denies fevers, chills, or recent illness. Patient does report a history of previous laminectomy, possible fusion following fractures to the spine in 2007 resulting from a slip and fall. Patient also reports history of right-sided CVA previously. Patient denies new weakness to the lower extremities, denies urinary retention symptoms, and denies rash to the low back area. Patient has been taking Tylenol and "a muscle relaxer" at home that has not improved her symptoms significantly. Patient denies injury or trauma to the back recently. MD Complaint: Back pain Onset/Timin -: Days(s) Radiation: None Severity: Moderate Quality: Aching Consistency: Intermittent Improves With: Sitting upright Worsens With: Other (Change in position) Context: Unknown, Other Associated Symptoms: Denies other symptoms Treatments Prior to Arrival: Acetaminophen - Related Data Previous Rx's Medication Instructions Recorded Cephalexin [Keflex] 500 mg PO TID #20 cap 06/23/19 Allergies Allergy/AdvReac Type Severity Reaction Status Date / Time Iodinated Contrast Media Allergy HIVES Verified 01/14/19 16:30 [Iodinated Contrast Media - Oral and] Penicillins Allergy ANAPHYLAXIS Verified 01/14/19 16:30 Review of Systems Constitutional: Denies: Chills, Fever, Malaise, Night sweats Eyes: Denies: Eye discharge, Eye pain ENT: Denies: Congestion, Ear pain, Epistaxis Respiratory: Denies: Cough, Dyspnea Cardiovascular: Denies: Chest pain, Dyspnea on exertion Endocrine: Denies: Fatigue, Heat or cold intolerance Gastrointestinal: Denies: Abdominal pain, Nausea, Vomiting Genitourinary: Denies: Incontinence, Retention Musculoskeletal: Reports: Back pain. 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 some speech/memory loss - GI Hx GI Disorders: No - Hx Genitourinary Disorders: No - ENDOCRINE Hx Endocrine Disorders: Yes Hx Diabetes: Yes - MUSCULOSKELETAL Hx Musculoskeletal Disorders: No - PSYCH Hx Psych Problems: No - HEMATOLOGY/ONCOLOGY Hx Hematology/Oncology Disorders: No Family Medical History Hx Cancer: Mother Hx Heart Disease: Father Hx Stroke: Mother Physical Exam - General General Appearance: Alert, Oriented x3, Cooperative, Mild distress, Other (Pain appears well controlled while sitting in her wheelchair) Limitations: No limitations - Head Head exam: Atraumatic, Normocephalic, Normal inspection Head exam detail: negative: Abrasion, Contusion, Lyons's sign, General tenderness, Hematoma, Laceration - Eye Eye exam: Normal appearance. negative: Conjunctival injection, Periorbital swelling, Periorbital tenderness, Scleral icterus - ENT Ear exam: negative: Auricular hematoma, Auricular trauma Nasal Exam: negative: Active bleeding, Discharge, Dried blood, Foreign body Mouth exam: negative: Drooling, Laceration, Muffled voice, Tongue elevation - Neck Neck exam: Normal inspection. negative: Meningismus, Tenderness - Respiratory Respiratory exam: Normal lung sounds bilaterally. negative: Rales, Respiratory distress, Rhonchi, Stridor - Cardiovascular Cardiovascular Exam: Regular rate, Normal rhythm, Normal heart sounds - GI/Abdominal GI/Abdominal exam: Soft. negative: Rebound, Rigid, Tenderness - Rectal Rectal exam: Deferred - exam: Deferred - Extremities Extremities exam: Other (Contractures to the RUE, chronic weakness of the RUE/RLE on examination.). negative: Calf tenderness, Pedal edema, Tenderness - Back Back exam: Reports: Paraspinal tenderness (TTP left lower lumbar region, no rash present on examination, no STS or cliniacl evidence for infection.). Denies: CVA tenderness (R), CVA tenderness (L) - Neurological Neurological exam: Alert, Oriented X3, Other (Right sided facial paralysis) - Psychiatric Psychiatric exam: Normal affect, Normal mood - Skin Skin exam: Normal color. negative: Abrasion Type of lesion: negative: abrasion Course - Reevaluation(s) Reevaluation #1: 06/23/19 21:02 Laboratory studies were reviewed and appear grossly unremarkable except for the following: GFR 55 Reevaluation #2: 06/23/19 21:54 CT Lumbar Spine: Degenerative changes at L5/S1 No acute process UA was reviewed: 2+ Bacteria Patient was updated on all results, will treat for acute cystitis with Keflex as directed. Patient also reports improvement in her pain symptoms. No clinical suspicion for epidural abscess or acute spinal cord compression syndrome/cauda equina. Medical Decision Making - Lab Data Result diagrams: 06/23/19 20:35 06/23/19 20:35 Disposition Disposition: Discharge Clinical Impression: Acute exacerbation of chronic low back pain UTI (urinary tract infection) Qualifiers: Urinary tract infection type: acute cystitis Hematuria presence: without hematuria Qualified Code(s): N30.00 - Acute cystitis without hematuria Disposition: Home, Self-Care Condition: (2) Stable Instructions: Low Back Strain (ED) Additional Instructions: Return to ED if your symptoms worsen or if you have any concerns. Keflex as directed. Follow-up with your family doctor in 3-5 days as directed. Prescriptions: Cephalexin [Keflex] 500 mg PO TID #20 cap Time of Disposition: 21:57 Quality - Quality Measures Quality Measures: N/A - Blood Pressure Screening Does Patient Have Any of the Following: Active Dx of HTN Blood Pressure Classification: Hypertensive Reading Systolic Measurement: 143 Diastolic Measurement: 74 Screening for High Blood Pressure: Patient Exclusion, Hx of HTN [G9744]
[2019-06-23] MEDS ORDERED: 0.9 % SODIUM CHLORIDE 1000ML 500 ML IV SCH (20:30)
[2019-06-23 20:44] LABS: BASO % 0.6 % (0-6); EOS % 3.5 % (0-6); GRAN % 56.1 % (47-80); HEMOGLOBIN 12.3 gm/dl (11.6-16.0); MEAN CORPUSCULAR HEMOGLOBIN 28.1 pg (27-33); MEAN CORPUSCULAR HGB CONC 32.4 g/dl (32-36); MONO % 7.8 % (0-9); PLATELET COUNT 247 K/uL (130-400); RED BLOOD COUNT 4.37 M/uL (3.80-5.40); RED CELL DISTRIBUTION WIDTH 14.8 % (11.5-14.5); WHITE BLOOD COUNT W/O DIFF 6.9 K/uL (4.2-12.2)
[2019-06-23 20:57] LABS: CREATININE 1.1 mg/dL (0.5-0.9)
[2019-06-23] MEDS ORDERED: KETOROLAC 30 MG/ML VIAL IM ONE (21:06)
[2019-06-23 21:36] LABS: URINE APPEARANCE CLEAR; URINE BILIRUBIN SMALL (NEGATIVE); URINE BLOOD NEGATIVE (NEGATIVE); URINE COLOR YELLOW; URINE GLUCOSE (UA) NEGATIVE (NEGATIVE); URINE KETONE NEGATIVE (NEGATIVE); URINE LEUKOCYTE ESTERASE NEGATIVE (NEGATIVE); URINE NITRITE POSITIVE (NEGATIVE); URINE UROBILINOGEN 0.2 E.U./dL (0.20 - 1.00)
[2019-06-23 21:46] LABS: URINE RBC 0 - 2 (NONE SEEN); URINE WBC 0 - 2 (0-2/hpf)
[2019-06-23 21:47] LABS: URINE BACTERIA 2+
--- NOTE | 2019-06-23 21:49 | CT SCAN REPORT ---
EXAMINATION: CT Lumbar Spine without Contrast EXAM DATE: 06/23/2019 9:33 PM TECHNIQUE: Standard protocol CT images were performed of the lumbar spine without contrast. Sagittal and coronal 2-D images were reconstructed. INDICATION: low back pain, h/o surgery COMPARISON: CT abdomen/pelvis 05/18/2018 ENCOUNTER: Not applicable FINDINGS: Spinal alignment is anatomic. The paraspinal soft tissues are unremarkable. No fractures are present. L1-2: Unremarkable. L2-3: Unremarkable. L3-4: Unremarkable. L4-5: Unremarkable. L5-S1: There are disc height loss, similar to the prior exam. Sequelae from right laminotomy. Posteri or osteophytes and facet joint arthropathy contributes to severe right neural foraminal stenosis. Mil d left neural foraminal narrowing. Additional findings: 16 mm exophytic cyst off the inferior left kidney. IMPRESSION: At L5-S1, there is severe disc height loss and right neural foraminal stenosis. Dictated by: Sage Alvarez MD on 06/23/2019 9:42 PM. .
[2019-06-23] MEDS ORDERED: CEPHALEXIN 500 MG CAPSULE PO STA (21:58)
== END 2019-06-23 22:10 | disposition home or self-care (01) ==
LOC: ER 20:13
DX: M54.5 Low back pain (principal); N30.00 Acute cystitis without hematuria; I10 Essential (primary) hypertension; I25.2 Old myocardial infarction; Z86.73 Personal history of transient ischemic attack (TIA), and cerebral infarction without residual deficits; Z87.891 Personal history of nicotine dependence
CPT/HCPCS: 72131; 80048; 81001; 85025; 96372; 99284; J1885

== ENCOUNTER 2019-07-09 13:22 | Emergency (ER) | payer MEDICAID ==
[2019-07-09] MEDS ORDERED: ONDANSETRON HCL IV 4 MG/2 ML VIAL IVP ONE (13:43)
[2019-07-09] MEDS ORDERED: 0.9 % SODIUM CHLORIDE 1000ML 1,000 ML IV ONE (13:43)
--- NOTE | 2019-07-09 13:49 | Emergency Department Record ---
History of Present Illness - General Chief Complaint: Cough Stated Complaint: COUGH,VOMITING Time Seen by Provider: 07/09/19 13:42 Source: Patient Mode of Arrival: Ambulatory Limitations: No limitations - History of Present Illness Initial Comments: 53 yo female presents with upper respiratory symptoms for a week. She has had cough and congestion. The cough has become productive. She has had some nausea and vomiting today. She has mild sore throat. No chest pain. No abdominal pain. She was diagnosed with a UTI recently. She is on antibiotics for that. She reports she did get Flu and pneumonia vaccinations. Hx of prior stroke. MD Complaint: Cough, Nasal congestion -: Days(s) (7) Severity: Moderate Quality: Aching Consistency: Constant Improves With: Nothing Worsens With: Other (Coughing) Context: Other Associated Symptoms: Cough - Related Data Previous Rx's Medication Instructions Recorded Azithromycin [Zithromax] 250 mg PO DAILY #15 tab 07/09/19 Ondansetron [Zofran Odt] 4 mg PO Q8H #15 tab.rapdis 07/09/19 Allergies Allergy/AdvReac Type Severity Reaction Status Date / Time Iodinated Contrast Media Allergy HIVES Verified 07/09/19 13:46 [Iodinated Contrast Media - Oral and] Penicillins Allergy ANAPHYLAXIS Verified 07/09/19 13:46 Review of Systems Constitutional: Reports: Chills, Fever (subjective), Weakness Eyes: Denies: Eye discharge ENT: Reports: Congestion, Throat pain. Denies: Ear pain Respiratory: Reports: Cough. Denies: Dyspnea, Wheezes Cardiovascular: Denies: Chest pain, Edema, Palpitations, Syncope Endocrine: Reports: Fatigue. Denies: Polydipsia, Polyuria Gastrointestinal: Reports: Nausea, Vomiting. Denies: Abdominal pain, Constipation, Diarrhea, Hematochezia, Melena Genitourinary: Denies: Dysuria, Urgency Musculoskeletal: Denies: Arthralgia, Back pain, Neck pain Skin: Denies: Bruising, Change in color, Rash Neurological: Denies: Headache Psychiatric: Denies: Anxiety Hematological/Lymphatic: Denies: Easy bleeding, Easy bruising Past Medical History - SOCIAL HISTORY Smoking Status: Former smoker Drug Use: None - RESPIRATORY Hx Respiratory Disorders: No - CARDIOVASCULAR Hx Cardio Disorders: Yes Hx Cardiac Cath: Yes Hx Chest Pain: Yes Hx Heart Attack: Yes - NEURO Hx Neuro Disorders: Yes Hx CVA: Yes (09/15/2014) Hx Neuropathy: Yes 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 some speech/memory loss - GI Hx GI Disorders: No - Hx Genitourinary Disorders: No - ENDOCRINE Hx Endocrine Disorders: Yes Hx Diabetes: Yes - MUSCULOSKELETAL Hx Musculoskeletal Disorders: No - PSYCH Hx Psych Problems: No - HEMATOLOGY/ONCOLOGY Hx Hematology/Oncology Disorders: No Family Medical History Hx Cancer: Mother Hx Heart Disease: Father Hx Stroke: Mother Physical Exam - General General Appearance: Alert, Oriented x3, Cooperative, No acute distress Limitations: No limitations - Head Head exam: Atraumatic, Normal inspection - Eye Eye exam: Normal appearance. negative: Conjunctival injection - ENT ENT exam: Normal exam, Mucous membranes moist, Normal orophraynx Ear exam: Normal external inspection Nasal Exam: Normal inspection Mouth exam: Normal external inspection - Neck Neck exam: Normal inspection, Full ROM. negative: Lymphadenopathy - Respiratory Respiratory exam: Decreased breath sounds, Rhonchi (few scattered). negative: Accessory muscle use, Prolonged expiratory, Respiratory distress, Wheezes - Cardiovascular Cardiovascular Exam: Regular rate, Normal rhythm, Normal heart sounds - GI/Abdominal GI/Abdominal exam: Soft. negative: Tenderness - Rectal Rectal exam: Deferred - exam: Deferred - Extremities Extremities exam: negative: Normal inspection (Brace on RLE) - Back Back exam: Denies: CVA tenderness (R), CVA tenderness (L) - Neurological Neurological exam: Alert, Oriented X3 - Psychiatric Psychiatric exam: Normal affect, Normal mood Course Vitals reviewed No acute abnormalities No fever, tachycardia or hypoxia - Reevaluation(s) Reevaluation #1: 07/09/19 14:46 The CBC is normal The Influenza are negative 07/09/19 15:05 The BMP was reviewed The CR is 1.3. Stable 07/09/19 15:10 The labs are at her baseline No hypoxia or fever She tolerated PO well I discussed the labs and CXR I recommend a 1-2 day recheck if any concerns. Return sooner if worse Medical Decision Making - Lab Data Result diagrams: 07/09/19 14:05 07/09/19 14:05 Disposition Disposition: Discharge Clinical Impression: Bronchitis Disposition: Home, Self-Care Condition: (1) Good Instructions: Acute Bronchitis (ED) Additional Instructions: Review this ER visit and the tests performed with your family doctor Call your doctor for the next available follow up appointment Return to the ER for a recheck if worse, any new concerns or questions Take the prescriptions provided as directed Prescriptions: Azithromycin [Zithromax] 250 mg PO DAILY #15 tab Ondansetron [Zofran Odt] 4 mg PO Q8H #15 tab.rapdis Forms: Patient Portal Access Time of Disposition: 15:09 Quality - Blood Pressure Screening Does Patient Have Any of the Following: No Blood Pressure Classification: Normal BP Reading Systolic Measurement: 114 Diastolic Measurement: 73 Screening for High Blood Pressure: < Normal BP, F/U Not Required > [G8783] Pre-Hypertensive Follow-up Interventions: Referral to alternative/primary care provider.
[2019-07-09 14:14] LABS: ABSOLUTE NEUTROPHIL COUNT 6.24; BASO % 0.5 % (0-6); EOS % 2.9 % (0-6); GRAN % 71.8 % (47-80); HEMATOCRIT 39.8 % (35.0-47.0); HEMOGLOBIN 12.9 gm/dl (11.6-16.0); LYMPH % 17.9 % (16-45); MEAN CELL VOLUME 87.5 fl (81-97); MEAN CORPUSCULAR HEMOGLOBIN 28.4 pg (27-33); MEAN CORPUSCULAR HGB CONC 32.4 g/dl (32-36); MEAN PLATELET VOLUME 8.4 fl (7.4-10.4); MONO % 6.9 % (0-9); PLATELET COUNT 287 K/uL (130-400); RED BLOOD COUNT 4.55 M/uL (3.80-5.40); RED CELL DISTRIBUTION WIDTH 14.6 % (11.5-14.5); WHITE BLOOD COUNT W/O DIFF 8.7 K/uL (4.2-12.2)
[2019-07-09 14:27] LABS: INFLUENZA A NEGATIVE (NEGATIVE); INFLUENZA B NEGATIVE (NEGATIVE)
[2019-07-09] MEDS ORDERED: AZITHROMYCIN 500 MG TABLET PO ONE (14:48)
[2019-07-09 15:02] LABS: BILIRUBIN,TOTAL < 0.20 mg/dL (0.2-1.0); BLOOD UREA NITROGEN 20 mg/dL (6-20); CREATININE 1.3 mg/dL (0.5-0.9); EST GLOMERULAR FILTRATION RATE 46 mL/min
[2019-07-09 15:03] LABS: TOTAL PROTEIN 7.1 g/dL (6.6-8.7)
[2019-07-09 15:05] LABS: GLUCOSE,RANDOM 207 mg/dL (74-109)
[2019-07-09 15:08] LABS: ALB/GLOB RATIO 1.1 (1.1-1.8); ALBUMIN 3.7 g/dL (4.0-5.0); ALKALINE PHOSPHATASE 246 U/L (35-104); ALT/SGPT 27 U/L (<33); AST/SGOT 28 U/L (10.0-35.0)
--- NOTE | 2019-07-09 15:17 | RADIOLOGY REPORT ---
EXAMINATION: Two View Chest Radiographs EXAM DATE: 07/09/2019 3:02 PM TECHNIQUE: Frontal and lateral views INDICATION: cough COMPARISON: 12/24/2013 ENCOUNTER: Not applicable FINDINGS: The heart, mediastinum, and pulmonary vasculature are normal. No lung consolidation or pleural effu sions are present. IMPRESSION: No active process. Dictated by: Damir Sandoval MD on 07/09/2019 3:14 PM. .
== END 2019-07-09 15:28 | disposition home or self-care (01) ==
LOC: ER 13:22
DX: J20.9 Acute bronchitis, unspecified (principal); R11.2 Nausea with vomiting, unspecified; Z87.891 Personal history of nicotine dependence; I25.2 Old myocardial infarction
CPT/HCPCS: 71046; 80053; 85025; 87400; 96361; 96374; 99284; J2405; J7030